=== PATIENT | female | born 1980 | race Caucasian/White ===

== ENCOUNTER 2019-10-04 21:55 | Emergency (ER) | payer MEDICAID, SELFPAY | END 2019-10-05 01:26 | disposition admitted as inpatient to this hospital (09) | LOC: ER 11-03 11:57 | PROVIDERS: Emergency Provider Emergency Medicine; Family Provider Family Medicine | DX: F31.9 Bipolar disorder, unspecified (principal); F10.20 Alcohol dependence, uncomplicated; F17.210 Nicotine dependence, cigarettes, uncomplicated; K70.10 Alcoholic hepatitis without ascites | CPT/HCPCS: 36415; 80053; 80306; 80307; 81025; 84443; 85025; 96372; 99284; 99285; J2405 ==

== ENCOUNTER 2019-10-04 21:55 | Inpatient (IN) | payer MEDICAID, SELFPAY ==
[2019-10-04 22:11] VITALS: BP 148/99; PULSE 105; RESP 18; TEMP 36.4; O2SAT 97; BMI 42.5
--- NOTE | 2019-10-04 22:36 | PC.NURSE ---
PATIENT STATES SHE NEEDS HELP WITH DETOX AND NEEDS TO STOP DRINKING ALCOHOL. PATIENT STATES THAT SHE WILL SLICE SOMEONES THROAT IF SHE IS NOT TAKEN TO THE STRESS UNIT. PATIENT STATES THAT SHE CANNOT DO IT ANYMORE AND NEEDS A COUPLE DAYS TO GET AWAY FROM IT . PATIENT STATES SHE IS BIPOLAR BUT NOT ON ANY MEDICATION AND HAS NOT STARTED ANY MEDICATION BECAUSE SHE CANNOT STOP DRINKING . PATIENT STATES SHE WANTS TO HURT HERSELF OR SOMEONE ELSE IF SHE CANNOT GET ANY HELP.
[2019-10-04 22:44] VITALS: RESP 16
--- NOTE | 2019-10-04 22:45 | ED_ITS ---
Entered by Ness Donaldson, acting as scribe for Reji Kate DO Oct 04, 2019 21:55 HPI - Psych General: Chief Complaint: Psychiatric Symptoms Stated Complaint: asking for detox Time Seen by Provider: 10/04/19 22:41 Source: patient and family Mode of arrival: ambulatory Limitations: no limitations History of Present Illness: HPI Narrative: 38 yo female presents with wanting detox from alcohol. pt states she has had depression. pt states she is a long standing alcoholic and needs help. pt states if she has inpt she will do it with medications. pt has had nausea and vomiting. pt denies any other symptoms at this time. MD complaint: other (detox for alcohol ) Onset (ago): day(s) (several days) Duration: constant and getting worse History of same: Yes Relieving factors: none Exacerbating factors: alcohol Context: recent alcohol abuse and significant life stressor Associated psychiatric symptoms: depression Associated symptoms: Reports depression; Deny auditory hallucinations or suicidal ideation Treatments prior to arrival: none Review of Systems Const: Denies: fever or chills Eyes: Denies: change in vision or blurry vision ENMT: Denies: painful swallowing, swelling of lips/tongue, bleeding gums, dental pain, Change in hearing, nose bleeds, post nasal drip or facial/sinus pain Card: Denies: chest pain, palpitations, irregular heart rhythm, edema, swelling of feet/ankles, shortness of breath on exertion or shortness of breath when lying down Resp: Denies: shortness of breath, productive cough, non-productive cough or wheezing GI: Reports: abdominal pain, nausea and vomiting; Denies: blood in stool or black tarry stool : Denies: painful urination, urinary frequency, urinary urgency or blood in urine Musc: Reports: back pain; Denies: neck pain, redness or joint warmth Skin/Breast: Denies: rash, itching or redness Neuro: Denies: headache, dizziness or vertigo Psych: Reports: depression; Denies: sleeping more, auditory hallucinations or suicidal ideation PFSH ED PFSH: Social History (Updated 09/25/19 @ 14:49 by EDWIGE Beach) Smoking and tobacco status: current every day smoker Alcohol intake: current Alcohol intake frequency: 3 or more drinks per day Alcohol type: hard liquor Lives independently: No Household members: friend(s) Housing: House Marital status: Number of children: 2 Pets and animals: Yes History of recent travel: No Physical Exam Const: COMMON NORMALS: alert GENERAL APPEARANCE: well developed ORIENTATION/CONSCIOUSNESS: Yes awake, Yes oriented to person, Yes oriented to place and Yes oriented to time HENMT: COMMON NORMALS: normocephalic, external ears normal, external nose normal and moist oral mucous membranes HEAD & SCALP: normocephalic; no scalp tenderness FACE & SINUS: normal facial exam NOSE: external nose normal and no nasal discharge EXTERNAL EAR: Yes external ears normal MOUTH: tongue normal THROAT: posterior oropharynx normal; no peritonsillar mass Eye: COMMON NORMALS: PERRL, EOMs intact bilaterally and conjunctivae normal EYELID: eyelids normal CONJUNCTIVA: Yes conjunctivae normal PUPIL: Yes PERRL Neck/C-Spine: COMMON NORMALS: full ROM GENERAL: Yes anterior neck swelling and No tracheal deviation Chest: COMMONS NORMALS: inspection of chest normal CHEST: Yes symmetrical chest wall rise and No tenderness Resp: COMMON NORMALS: clear to auscultation bilaterally EFFORT & INSPECTION: No tachypneic, No respiratory distress, No retractions, No uses accessory muscles and No tracheal deviation AUSCULTATION: clear to auscultation bilaterally, no rhonchi, no wheezes and lung sounds not diminished Cardio: COMMON NORMALS: regular rate and regular rhythm RATE: regular rate RHYTHM: regular rhythm HEART SOUNDS: no murmurs PERIPHERAL PULSES: radial pulses present GI: INSPECTION: No abdominal distension AUSCULTATION: No hyperactive bowel sounds and No hypoactive bowel sounds PALPATION: No tender, No guarding and No rigid PERCUSSION: no dullness to percussion and no tympanic to percussion : COMMON NORMALS: Yes no CVA tenderness BLADDER/KIDNEY EXAM: Yes no CVA tenderness Back/Pelvis: COMMON NORMALS: no CVA tenderness PELVIS: Yes no pain with anterior-posterior compression and Yes no pain with lateral compression Neuro: SENSORIUM/ORIENTATION: Yes alert, Yes oriented to person, Yes oriented to place and Yes oriented to time Skin: COMMON NORMALS: no rashes or lesions noted GENERAL SKIN EXAM: no rashes or lesions noted MDM - Psych MDM Narrative: Medical decision making narrative: This is a 38-year-old female who is a daily drinker. She reports that she has been increasingly angry, and wanting to slit someone's throat for the past couple of days. She is depressed, concerned about her drinking. She wants to come off of alcohol. She states I feel safe here, but if you will send me home, I am liable to slit someone's throat . She is medically stable. We discussed the case with Dr. Olsen, who agrees to admit. Lab Data: Labs: Lab Results 10/04/19 10/04/19 10/04/19 Range/Units 23:37 23:37 23:37 WBC (4.0-10.0) 10^3/ uL RBC (4.1-5.3) 10^6/u L Hgb (11.5-15.3) g/dL Hct (37.0-47.0) % MCV (81-99) fL MCH (28.0-34.0) pg MCHC (30.0-36.0) g/dL RDW (12.1-15.1) % Plt Count (130-400) 10^3/c mm MPV (7.4-10.4) fL Neut % (Auto) % Lymph % (Auto) % Florence % (Auto) % Eos % (Auto) % Baso % (Auto) % Neut # (Auto) (1.8-7.7) 10^3/u L Lymph # (Auto) (0.8-4.8) 10^3/u L Florence # (Auto) (0.2-0.9) 10^3/u L Eos # (Auto) (0.0-0.8) 10^3/u L Baso # (Auto) (0.0-0.1) 10^3/u L Nucleated RBC % (a uto) % Nucleated RBCs # /100WBC Sodium (136-145) mmol/L Potassium (3.5-5.1) mmol/L Chloride (98-107) mmol/L Carbon Dioxide (22-29) mmol/L Anion Gap (5-19) BUN (6-20) mg/dL Creatinine (0.5-0.9) mg/dL GFR Calculation (90-130) mL/min Glucose (65-115) mg/dL Calcium (8.5-10.5) mg/dL Total Bilirubin (0.15-1.2) mg/dL AST (0-32) U/L ALT (0-33) U/L Alkaline Phosphata se (35-105) IU/L Total Protein (6.6-8.7) g/dL Albumin (3.5-5.2) g/dL Globulin (1.3-4.6) g/dL Vitamin B12 (232-1245) pg/mL Folate (4.8-37.3) ng/mL TSH (0.27-4.20) uIU/ mL HCG, Qual Negative (Negative) Urine Color Yellow (Yellow) Urine Appearance Clear (CLEAR) Urine pH 5 (5-7) Ur Specific Gravit y 1.015 (1.005-1.030) Urine Protein Neg (Negative) Urine Glucose (UA) Norm (Normal) Urine Ketones Negative (Negative) Urine Blood Neg (Negative) Urine Nitrate Negative (Negative) Urine Bilirubin Neg (NEGATIVE) Urine Urobilinogen Norm (Negative) mg/dL Ur Leukocyte Key[place] ase Negative (Negative) Salicylates (3-10) mg/dL Urine Opiates Scre en Negative (Negative) ng/mL Acetaminophen (10-30) ug/mL Ur Barbiturates Sc reen Negative (Negative) ng/mL Ur Phencyclidine S crn Negative (Negative) ng/mL Ur Amphetamines Sc reen Negative (Negative) ng/mL U Benzodiazepines Scrn Negative (Negative) ng/mL Urine Cocaine Scre en Negative (Negative) ng/mL U Marijuana (THC) Screen Positive H (Negative) ng/mL Ethyl Alcohol (0-10) mg/dL 10/04/19 10/04/19 10/04/19 Range/Units 23:42 23:42 23:42 WBC 10.4 H (4.0-10.0) 10^3/ uL RBC 4.39 (4.1-5.3) 10^6/u L Hgb 14.8 (11.5-15.3) g/dL Hct 43.8 (37.0-47.0) % MCV 99.8 H (81-99) fL MCH 33.7 (28.0-34.0) pg MCHC 33.8 (30.0-36.0) g/dL RDW 13.5 (12.1-15.1) % Plt Count 233 (130-400) 10^3/c mm MPV 10.3 (7.4-10.4) fL Neut % (Auto) 65.6 % Lymph % (Auto) 23.9 % Florence % (Auto) 7.2 % Eos % (Auto) 2.0 % Baso % (Auto) 0.8 % Neut # (Auto) 6.9 (1.8-7.7) 10^3/u L Lymph # (Auto) 2.5 (0.8-4.8) 10^3/u L Florence # (Auto) 0.8 (0.2-0.9) 10^3/u L Eos # (Auto) 0.2 (0.0-0.8) 10^3/u L Baso # (Auto) 0.1 (0.0-0.1) 10^3/u L Nucleated RBC % (a uto) 0 % Nucleated RBCs # 0.0 /100WBC Sodium 138 (136-145) mmol/L Potassium 4.2 (3.5-5.1) mmol/L Chloride 101 (98-107) mmol/L Carbon Dioxide 21 L (22-29) mmol/L Anion Gap 20.2 H (5-19) BUN 12 (6-20) mg/dL Creatinine 0.6 (0.5-0.9) mg/dL GFR Calculation 113.1 (90-130) mL/min Glucose 105 (65-115) mg/dL Calcium 9.2 (8.5-10.5) mg/dL Total Bilirubin 0.3 (0.15-1.2) mg/dL AST 208 H (0-32) U/L ALT 187 H (0-33) U/L Alkaline Phosphata se 106 H (35-105) IU/L Total Protein 7.7 (6.6-8.7) g/dL Albumin 4.7 (3.5-5.2) g/dL Globulin 3.0 (1.3-4.6) g/dL Vitamin B12 (232-1245) pg/mL Folate 4.4 L (4.8-37.3) ng/mL TSH 1.30 (0.27-4.20) uIU/ mL HCG, Qual (Negative) Urine Color (Yellow) Urine Appearance (CLEAR) Urine pH (5-7) Ur Specific Gravit y (1.005-1.030) Urine Protein (Negative) Urine Glucose (UA) (Normal) Urine Ketones (Negative) Urine Blood (Negative) Urine Nitrate (Negative) Urine Bilirubin (NEGATIVE) Urine Urobilinogen (Negative) mg/dL Ur Leukocyte Keya ase (Negative) Salicylates < 0.3 L (3-10) mg/dL Urine Opiates Scre en (Negative) ng/mL Acetaminophen < 5.0 L (10-30) ug/mL Ur Barbiturates Sc reen (Negative) ng/mL Ur Phencyclidine S crn (Negative) ng/mL Ur Amphetamines Sc reen (Negative) ng/mL U Benzodiazepines Scrn (Negative) ng/mL Urine Cocaine Scre en (Negative) ng/mL U Marijuana (THC) Screen (Negative) ng/mL Ethyl Alcohol 127 H (0-10) mg/dL 10/04/19 Range/Units 23:42 WBC (4.0-10.0) 10^3/ uL RBC (4.1-5.3) 10^6/u L Hgb (11.5-15.3) g/dL Hct (37.0-47.0) % MCV (81-99) fL MCH (28.0-34.0) pg MCHC (30.0-36.0) g/dL RDW (12.1-15.1) % Plt Count (130-400) 10^3/c mm MPV (7.4-10.4) fL Neut % (Auto) % Lymph % (Auto) % Florence % (Auto) % Eos % (Auto) % Baso % (Auto) % Neut # (Auto) (1.8-7.7) 10^3/u L Lymph # (Auto) (0.8-4.8) 10^3/u L Florence # (Auto) (0.2-0.9) 10^3/u L Eos # (Auto) (0.0-0.8) 10^3/u L Baso # (Auto) (0.0-0.1) 10^3/u L Nucleated RBC % (a uto) % Nucleated RBCs # /100WBC Sodium (136-145) mmol/L Potassium (3.5-5.1) mmol/L Chloride (98-107) mmol/L Carbon Dioxide (22-29) mmol/L Anion Gap (5-19) BUN (6-20) mg/dL Creatinine (0.5-0.9) mg/dL GFR Calculation (90-130) mL/min Glucose (65-115) mg/dL Calcium (8.5-10.5) mg/dL Total Bilirubin (0.15-1.2) mg/dL AST (0-32) U/L ALT (0-33) U/L Alkaline Phosphata se (35-105) IU/L Total Protein (6.6-8.7) g/dL Albumin (3.5-5.2) g/dL Globulin (1.3-4.6) g/dL Vitamin B12 961 (232-1245) pg/mL Folate (4.8-37.3) ng/mL TSH (0.27-4.20) uIU/ mL HCG, Qual (Negative) Urine Color (Yellow) Urine Appearance (CLEAR) Urine pH (5-7) Ur Specific Gravit y (1.005-1.030) Urine Protein (Negative) Urine Glucose (UA) (Normal) Urine Ketones (Negative) Urine Blood (Negative) Urine Nitrate (Negative) Urine Bilirubin (NEGATIVE) Urine Urobilinogen (Negative) mg/dL Ur Leukocyte Keya ase (Negative) Salicylates (3-10) mg/dL Urine Opiates Scre en (Negative) ng/mL Acetaminophen (10-30) ug/mL Ur Barbiturates Sc reen (Negative) ng/mL Ur Phencyclidine S crn (Negative) ng/mL Ur Amphetamines Sc reen (Negative) ng/mL U Benzodiazepines Scrn (Negative) ng/mL Urine Cocaine Scre en (Negative) ng/mL U Marijuana (THC) Screen (Negative) ng/mL Ethyl Alcohol (0-10) mg/dL Discharge Plan Discharge Admit Provider: Kenrick Olsen Discharge Date/Time: 10/05/19 01:26 Coding Level of Care Code ED Consultant Nurse for Chg Fwd Exam Comprehensive The documentation recorded by the Mendoza corbett Bridget Annette, accurately reflects the service I personally performed and the decisions made by [place] Jeremy John, DO Oct 04, 2019 21:55
--- NOTE | 2019-10-04 22:54 | PC.NURSE ---
PATIENT TAKEN WATER BY NURSE
[2019-10-04 23:45] LABS: Basophils # 0.1 10^3/uL (0.0-0.1); Basophils % 0.8 %; Eosinophils # 0.2 10^3/uL (0.0-0.8); Hematocrit 43.8 % (37.0-47.0); Hemoglobin 14.8 g/dL (11.5-15.3); Lymphocytes # 2.5 10^3/uL (0.8-4.8); Lymphocytes % 23.9 %; Mean Corpuscular HGB Conc 33.8 g/dL (30.0-36.0); Mean Corpuscular Hemoglobin 33.7 pg (28.0-34.0); Mean Corpuscular Volume 99.8 fL (81-99); Mean Platelet Volume 10.3 fL (7.4-10.4); Monocytes # 0.8 10^3/uL (0.2-0.9); Monocytes % 7.2 %; Neutrophils # 6.9 10^3/uL (1.8-7.7); Neutrophils % 65.6 %; Nucleated Red Blood Cells % 0 %; Platelet Count 233 10^3/cmm (130-400); Red Blood Count 4.39 10^6/uL (4.1-5.3); Red Cell Distribution Width 13.5 % (12.1-15.1); White Blood Count 10.4 10^3/uL (4.0-10.0)
[2019-10-04 23:57] LABS: Add Urine Microscopic? NO
[2019-10-05 00:13] LABS: Amphetamines Screen Urine Negative (Negative); Barbiturates Screen Urine Negative (Negative); Benzodiazepines Screen Urine Negative (Negative); Cocaine Screen Urine Negative (Negative); Opiate Screen Urine Negative (Negative); PCP Screen Urine Negative (Negative); THC Screen Urine Positive (Negative)
[2019-10-05 00:14] LABS: Bilirubin Urine Neg (NEGATIVE); Blood Urine Neg (Negative); Glucose Urine UA Norm (Normal); HCG Qualitative Urine. Negative (Negative); Ketones Urine Negative (Negative); Leukocyte Esterase Urine Negative (Negative); Nitrate Urine Negative (Negative); Protein Urine Neg (Negative); Specific Gravity, Urine 1.015 (1.005-1.030); Urine Appearance Clear (CLEAR); Urine Color Yellow (Yellow); Urobilinogen Urine Norm (Negative); pH Urine 5 (5-7)
--- NOTE | 2019-10-05 00:16 | PC.NURSE ---
PATIENT STATES SHE DOES NOT WANT TO HURT ANYONE OR HERSELF AT THIS MOMENT. PATIENT STATES SHE HAS CALMED DOWN SINCE BEING IN THE HOSPITAL BUT IF SHE IS NOT IN THE HOSPITAL SHE WILL GET MAD
[2019-10-05 00:18] LABS: Alanine Aminotransferase 187 U/L (0-33); Albumin Level 4.7 g/dL (3.5-5.2); Alcohol Level 127 mg/dL (0-10); Alkaline Phosphatase 106 IU/L (35-105); Anion Gap 20.2 (5-19); Aspartate Amino Transferase 208 U/L (0-32); Blood Urea Nitrogen 12 mg/dL (6-20); Calcium 9.2 mg/dL (8.5-10.5); Carbon Dioxide 21 mmol/L (22-29); Chloride 101 mmol/L (98-107); Glomerular Filtration Rate 113.1 mL/min (90-130); Glucose 105 mg/dL (65-115); Potassium 4.2 mmol/L (3.5-5.1); Sodium 138 mmol/L (136-145); Total Bilirubin 0.3 mg/dL (0.15-1.2); Total Protein 7.7 g/dL (6.6-8.7)
[2019-10-05 00:23] LABS: Acetaminophen < 5.0 ug/mL (10-30); Salicylate < 0.3 mg/dL (3-10)
[2019-10-05] MEDS: ondansetron 2 mg/ML SDV 2 mL 4 MG IM (00:50)
[2019-10-05 01:21] VITALS: BP 125/92; PULSE 98; RESP 16; O2SAT 97
[2019-10-05 01:31] VITALS: BP 130/84; PULSE 101; RESP 18; TEMP 36.8; O2SAT 96
--- NOTE | 2019-10-05 02:18 | PC.NURSE ---
ibuprofen 800mg po given for migraine headache.
[2019-10-05 02:31] LABS: Folate Level 4.4 ng/mL (4.8-37.3)
[2019-10-05 02:32] LABS: Vitamin B12 961 pg/mL (232-1245)
[2019-10-05 06:00] VITALS: BP 117/77; PULSE 78; RESP 17; TEMP 37; O2SAT 94
[2019-10-05 13:50] VITALS: BP 121/74; PULSE 80; RESP 19
--- NOTE | 2019-10-05 14:30 | P.HP_ITS ---
Providers/Chief Complaint Admitting Physician: Kenrick Olsen MD Chief Complaint: asking for detox HPI [facility] History of Present Illness Teodora Stiles is a 38 year old female who presents reporting that sheo has a long history of bipolar disorder and alcohol use disorder but that she has been unable to start the Abilify which had been started for her in [place] recently secondary to fears that she would not get the benefit from the Abilify secondary to her serious drinking problem. She reports that she was doing well for a moment spacing out her drinking to maybe a pint every 3 days and she thought she would be able to start the medication to help with her reported bipolar symptoms which she did not clearly describe. However she reports that her drinking increased instead to where she was drinking 2 to 3 pints a day. She reports that she now has been 1 day without drinking. We discussed the risks benefits and alternatives of starting the Abilify and she understood and agreed to proceed as is documented in this note. Psychiatric history: This is her second hospitalization in the [facility]. She denies significant medication trials. Substance abuse history: She does confirm the previous history obtained endorsing significant alcohol use as above. She has a history of methamphetamine use which she currently denies. Family history: She does endorse significant addiction history in her family. Developmental history: She denies contributory information reporting a normal and delivery by her mom, normal development and meeting of developmental milestones and denial of any academic issues during her formative years. Psychosocial history: She reports that she has 2 children. That she is currently unemployed. He reports that she has family but that she is no longer in contact with them. History of Present Illness Date of Service: December 18, 2017 Chief Complaint: Suicidal attempt by laceration of wrists HPI: Ms. Stiles is a 35-year-old female who is new to our behavioral health system who was admitted under 96 hour hold after she was brought in by EMS that she attempted to kill herself by cutting both wrists bilaterally. Apparently she used to pressure knife and created to deep lacerations on requiring internal and external sutures yesterday requiring marisol. Patient reports that she's been struggling with depression in recent days in the context of being estranged from her family, learning that her mother is terminally ill, and feeling completely alone . She reports that she is been drinking steadily for the past 6 months and that she would drink at least 4-5 pints a day. BAL on admission was 5, she states that her last drink was today prior to admission. She does report a history of withdrawal symptoms consisting of sweats, tremors, but denies any withdrawal seizures. 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 She does admit to depression symptoms denies any symptoms consistent with mayela, hypomania, psychosis. Allergies: Coded Allergies: CODEINE (Verified Adverse Reaction, Unknown, 12/18/17) PREDNISONE (Verified Adverse Reaction, Unknown, 12/18/17) Past Medical History Past Medical History: PAST PSYCHIATRIC HISTORY: -This is her first hospitalization on the [facility] PAST FAMILY PSYCHIATRIC HISTORY: -Substance use SOCIAL HISTORY: -Recently moved to [place] from [place] -Has 2 children ages 16 years and 13 years that live in [place] PAST MEDICAL HISTORY: -COPD Meds [facility] Home Medications Medication Instructions Recorded Confirmed Type No Known Home Medications 10/05/19 10/05/19 History Allergies Allergy/AdvReac Type Severity Reaction Status Date / Time hydroxyzine [From Vistaril] Allergy Intermediate swelling Verified 09/25/19 14:46 of the mouth codeine Allergy ALGY-Difficulty Verified 09/25/19 14:46 Breathing prednisone Allergy ALGY-Swell Verified 09/25/19 14:46 Lip/Tongue/Throat PFSH [facility] PFSH: Social History (Updated 09/25/19 @ 14:49 by EDWIGE Beach) Smoking and tobacco status: current every day smoker Alcohol intake: current Alcohol intake frequency: 3 or more drinks per day Alcohol type: hard liquor Lives independently: No Household members: friend(s) Housing: House Marital status: Number of children: 2 Pets and animals: Yes History of recent travel: No Mental Status Exam MSE Comments: This is an obese versus morbidly obese white female with adequate dress, grooming and eye contact. No abnormal movements except for mild psychomotor agitation. Cooperative with exam in no acute distress. Speech was slightly increased rate and volume mood described as okay affect congruent. Tho ught process organized. Thought content: Patient denied any homicidal ideation but endorsed some fleeting suicidal ideation with no delusions reported or noted, she denied any auditory or visual hallucinations. Attention and concentration were intact and memory was mostly reliable but none were formally tested. She is alert and oriented x3. Insight and judgment are improving. Vitals/I&O/Wt Last Vital Signs Temp 98.6 F 10/05/19 06:00 Pulse 80 10/05/19 13:50 Resp 19 H 10/05/19 13:50 BP 121/74 10/05/19 13:50 Pulse Ox 94 10/05/19 06:00 Weight last 48 hrs Weight 109.316 kg Weight 108.862 kg Home Medications No Known Home Medications 10/05/19 [History Confirmed 10/05/19] Active Medications Acetaminophen (Tylenol) 650 mg PO Q4H PRN PRN Reason: MILD PAIN Aripiprazole (Abilify) 10 mg PO DAILY [facility] Last Admin: 10/05/19 21:59 Dose: 10 mg Documented by: Benztropine Mesylate (Cogentin) 1 mg PO BID PRN PRN Reason: Mild Extrapyramidal symptoms Camphor/Menthol/Phenol (Blistex) 1 applic TOPICAL Q1H PRN PRN Reason: DRYNESS Diphenhydramine HCl (Benadryl) 50 mg IM ONCE PRN PRN Reason: Severe Extrapyramidal Symptoms Diphenhydramine HCl (Benadryl) 50 mg IM Q4H PRN PRN Reason: Severe Aggression Doxepin HCl (Sinequan) 10 mg PO BEDTIME [facility] Last Admin: 10/05/19 21:59 Dose: 10 mg Documented by: Haloperidol (Haldol) 5 mg PO Q4H PRN PRN Reason: AGITATION Haloperidol Lactate (Haldol Inj) 5 mg IM Q4H PRN PRN Reason: Severe Aggression Ibuprofen (Motrin) 800 mg PO Q8H PRN PRN Reason: MODERATE PAIN Last Admin: 10/05/19 02:13 Dose: 800 mg Documented by: Loperamide HCl (Imodium Capsule) 2 mg PO Q6H PRN PRN Reason: DIARRHEA Lorazepam (Ativan) 2 mg IM Q4H PRN PRN Reason: Severe Aggression Nicotine (Nicoderm 21 Mg Patch) 1 patch TRANSDERMA DAILY PRN PRN Reason: NICOTINE WITHDRAWAL Last Admin: 10/05/19 15:22 Dose: 1 patch Documented by: Nicotine Polacrilex (Nicorette) 2 mg BUCCAL Q2H PRN PRN Reason: NICOTINE WITHDRAWAL Olanzapine (Zyprexa Zydis) 5 mg PO Q4H PRN PRN Reason: Agitation/Psychosis Ondansetron HCl (Zofran) 4 mg PO Q6H PRN PRN Reason: NAUSEA AND VOMITING Last Admin: 10/05/19 18:55 Dose: 4 mg Documented by: Trazodone HCl (Desyrel) 50 mg PO BEDTIME PRN PRN Reason: SLEEP Data [facility]PU : 10/04/19 23:42 10/04/19 23:42 A&P Assessment and plan (1) Alcohol use disorder, severe, dependence: This is a 38-year-old white female with a reported history of bipolar disorder and addiction with significant alcohol use reported who presents in her first day of withdrawal off of medication desiring to start a medication she had not been able to start secondary to her heavy drinking. 1. Continue current medication. Except again Abilify 10 mg p.o. every morning and doxepin 10 mg p.o. nightly 2. Work to get collateral information from outpatient sources. 3. Encourage individual group and milieu therapy. 4. Continue every 15 minute checks for safety. 5. Plan for discharge to highest level of sober living treatment to which she is willing to commit. Status: Acute Code(s): F10.20 - Alcohol dependence, uncomplicated (2) Bipolar 1 disorder: Status: Acute Code(s): F31.9 - Bipolar disorder, unspecified Involuntary Hold Information 96 Hour Hold: 96 Hour Involuntary Admission: No Attestations [facility] Medical Necessity Statement*: Inpatient hospitalization is medically necessary and the clinically appropriate intervention at this time. She will be in the hospital for over 2 midnights. We will monitor medications and make changes as indicated. Likely length of stay 3 to 5 days. Coding Level of Care Code Acute [employer] Supervisor for Zeus Fwstacey Diagnoses Alcohol use disorder, severe, dependence F10.20 Bipolar 1 disorder F31.9
[2019-10-05] MEDS: ondansetron 4 MG Tablet PO ×2 (15:06→18:55)
[2019-10-05] MEDS: nicotine 21 mg Patch 1 PATCH TRANSDERMA (15:22)
--- NOTE | 2019-10-05 18:53 | PC.NURSE ---
PT NOT: PRN ZOFRAN 4MG GIVEN FOR NAUSEA X2 THIS SHIFT.
[2019-10-05 21:22] VITALS: BP 112/72; PULSE 87; RESP 20; TEMP 36.7; O2SAT 97
[2019-10-05] MEDS: doxepin 10 mg Capsule PO (21:59)
[2019-10-05] MEDS: ARIPiprazole 10 mg Tablet PO (21:59)
[2019-10-06 06:00] VITALS: BP 106/65; PULSE 75; RESP 16; TEMP 36.8; O2SAT 96
[2019-10-06] MEDS: ARIPiprazole 10 mg Tablet PO (08:59)
[2019-10-06] MEDS: ondansetron 4 MG Tablet PO ×3 (09:15→21:17)
--- NOTE | 2019-10-06 09:18 | PC.NURSE ---
PT NOTE: PRN ZOFRAN GIVEN FOR NAUSEA, PRN IBUPROFEN GIVEN FOR HEADACHE AT A 6 ON THE 1-10 PAIN SCALE.
--- NOTE | 2019-10-06 12:54 | PM.NPN ---
Subjective NPU Subjective: Interval history: Teodora presents today reporting that she is feeling better. She was already speaking about discharge. We discussed the fact that would like to see her on the medication another day. She reports that she accomplished her goal of not using for a couple days and that she has things to do, a job in place and feeling she has all of the necessary tools and circumstances to have success outside of the hospital. We discussed aftercare and [facility] She reports that she is eating and sleeping well. Mental Status Exam MSE Comments: This is an obese versus morbidly obese white female with adequate dress, grooming and eye contact. No abnormal movements. Cooperative with exam in no acute distress. Speech was normal rate and volume. mood described as better affect congruent. Thought process organized. Thought content: Patient denied any homicidal ideation or suicidal ideation with no delusions reported or noted, she denied any auditory or visual hallucinations. Attention and concentration were intact and memory was mostly reliable but none were formally tested. She is alert and oriented x3. Insight and judgment are improving. Vitals/I&O/Wt Last Vital Signs Temp 98.2 F 10/06/19 21:48 Pulse 96 10/06/19 21:48 Resp 17 10/06/19 21:48 BP 136/88 10/06/19 21:48 Pulse Ox 96 10/06/19 21:48 Weight last 48 hrs Weight 109.316 kg Home Medications No Known Home Medications 10/05/19 [History Confirmed 10/05/19] Active Medications Acetaminophen (Tylenol) 650 mg PO Q4H PRN PRN Reason: MILD PAIN Aripiprazole (Abilify) 10 mg PO DAILY [facility] Last Admin: 10/06/19 08:59 Dose: 10 mg Documented by: Benztropine Mesylate (Cogentin) 1 mg PO BID PRN PRN Reason: Mild Extrapyramidal symptoms Camphor/Menthol/Phenol (Blistex) 1 applic TOPICAL Q1H PRN PRN Reason: DRYNESS Diphenhydramine HCl (Benadryl) 50 mg IM ONCE PRN PRN Reason: Severe Extrapyramidal Symptoms Diphenhydramine HCl (Benadryl) 50 mg IM Q4H PRN PRN Reason: Severe Aggression Doxepin HCl (Sinequan) 10 mg PO BEDTIME [facility] Last Admin: 10/06/19 21:15 Dose: 10 mg Documented by: Haloperidol (Haldol) 5 mg PO Q4H PRN PRN Reason: AGITATION Haloperidol Lactate (Haldol Inj) 5 mg IM Q4H PRN PRN Reason: Severe Aggression Ibuprofen (Motrin) 800 mg PO Q8H PRN PRN Reason: MODERATE PAIN Last Admin: 10/06/19 09:16 Dose: 800 mg Documented by: Loperamide HCl (Imodium Capsule) 2 mg PO Q6H PRN PRN Reason: DIARRHEA Lorazepam (Ativan) 2 mg IM Q4H PRN PRN Reason: Severe Aggression Nicotine (Nicoderm 21 Mg Patch) 1 patch TRANSDERMA DAILY PRN PRN Reason: NICOTINE WITHDRAWAL Last Admin: 10/06/19 16:49 Dose: 1 patch Documented by: Nicotine Polacrilex (Nicorette) 2 mg BUCCAL Q2H PRN PRN Reason: NICOTINE WITHDRAWAL Olanzapine (Zyprexa Zydis) 5 mg PO Q4H PRN PRN Reason: Agitation/Psychosis Ondansetron HCl (Zofran) 4 mg PO Q6H PRN PRN Reason: NAUSEA AND VOMITING Last Admin: 10/06/19 21:17 Dose: 4 mg Documented by: Trazodone HCl (Desyrel) 50 mg PO BEDTIME PRN PRN Reason: SLEEP Last Admin: 10/06/19 22:04 Dose: 50 mg Documented by: Data NPU : 10/04/19 23:42 10/04/19 23:42 A&P Additional A&P Information This is a 38-year-old white female with a reported history of bipolar disorder and addiction with significant alcohol use reported who presents in her first day of withdrawal off of medication desiring to start a medication she had not been able to start secondary to her heavy drinking. 1. Continue current medication. 2. Work to get collateral information from outpatient sources. 3. Encourage individual group and milieu therapy. 4. Continue every 15 minute checks for safety. 5. Plan for discharge to highest level of sober living treatment to which she is willing to commit. Involuntary Hold Information 96 Hour Hold: 96 Hour Involuntary Admission: No Attestations NPU Medical Necessity Statement*: Inpatient hospitalization is medically necessary and the clinically appropriate intervention at this time. We will monitor medications and make changes as indicated. Likely length of stay 1-3 days.Likely discharge tomorrow per patient request. Coding Level of Care Code Acute Commercial Pest Control Technician for Con Sanchez
[2019-10-06 14:00] VITALS: BP 118/74; PULSE 82; RESP 18; TEMP 37; O2SAT 98
[2019-10-06] MEDS: nicotine 21 mg Patch 1 PATCH TRANSDERMA (16:49)
[2019-10-06] MEDS: doxepin 10 mg Capsule PO (21:15)
[2019-10-06 21:48] VITALS: BP 136/88; PULSE 96; RESP 17; TEMP 36.8; O2SAT 96
[2019-10-06] MEDS: trazodone 50 mg Tablet PO (22:04)
[2019-10-07 06:00] VITALS: BP 111/76; PULSE 81; RESP 18; TEMP 36.7; O2SAT 96
[2019-10-07] MEDS: ARIPiprazole 10 mg Tablet PO (09:25)
--- NOTE | 2019-10-07 12:26 | PM.NDC ---
Diagnoses at Discharge Discharge Diagnosis (1) Alcohol use disorder, severe, dependence: Status: Acute (2) Bipolar 1 disorder: Status: Acute Reason for Visit Reason for Visit: Reason For Visit: asking for detox Brief History: HPI NPU History of Present Illness Teodora Stiles is a 38 year old female who presents reporting that sheo has a long history of bipolar disorder and alcohol use disorder but that she has been unable to start the Abilify which had been started for her in [place] recently secondary to fears that she would not get the benefit from the Abilify secondary to her serious drinking problem. She reports that she was doing well for a moment spacing out her drinking to maybe a pint every 3 days and she thought she would be able to start the medication to help with her reported bipolar symptoms which she did not clearly describe. However she reports that her drinking increased instead to where she was drinking 2 to 3 pints a day. She reports that she now has been 1 day without drinking. We discussed the risks benefits and alternatives of starting the Abilify and she understood and agreed to proceed as is documented in this note. Psychiatric history: This is her second hospitalization in the NPU. She denies significant medication trials. Substance abuse history: She does confirm the previous history obtained endorsing significant alcohol use as above. She has a history of methamphetamine use which she currently denies. Family history: She does endorse significant addiction history in her family. Developmental history: She denies contributory information reporting a normal and delivery by her mom, normal development and meeting of developmental milestones and denial of any academic issues during her formative years. Psychosocial history: She reports that she has 2 children. That she is currently unemployed. He reports that she has family but that she is no longer in contact with them. Per her last [facility] eval: History of Present Illness Date of Service: December 18, 2017 Chief Complaint: Suicidal attempt by laceration of wrists HPI: Ms. Stiles is a 35-year-old female who is new to our behavioral health system who was admitted under 96 hour hold after she was brought in by EMS that she attempted to kill herself by cutting both wrists bilaterally. Apparently she used to pressure knife and created to deep lacerations on requiring internal and external sutures yesterday requiring marisol. Patient reports that she's been struggling with depression in recent days in the context of being estranged from her family, learning that her mother is terminally ill, and feeling completely alone . She reports that she is been drinking steadily for the past 6 months and that she would drink at least 4-5 pints a day. BAL on admission was 5, she states that her last drink was today prior to admission. She does report a history of withdrawal symptoms consisting of sweats, tremors, but denies any withdrawal seizures. 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 She does admit to depression symptoms denies any symptoms consistent with mayela, hypomania, psychosis. Allergies: Coded Allergies: CODEINE (Verified Adverse Reaction, Unknown, 12/18/17) PREDNISONE (Verified Adverse Reaction, Unknown, 12/18/17) Past Medical History Past Medical History: PAST PSYCHIATRIC HISTORY: -This is her first hospitalization on the NPU PAST FAMILY PSYCHIATRIC HISTORY: -Substance use SOCIAL HISTORY: -Recently moved to [place] from [place] -Has 2 children ages 16 years and 13 years that live in [place] PAST MEDICAL HISTORY: -COPD Hospital Course Hospital Course Teodora presented to the emergency room reporting active alcohol withdrawal with significant alcohol use disorder as well as Foster herself/killer cells and a history of bipolar disorder off of medication. She was admitted to the neuro psych unit and was monitored for withdrawal. Additionally she was started on the Abilify which had been prescribed from an outside provider never initiated before. Additionally she was given doxepin for sleep. She responded to those medications well. Her withdrawal resolved as well. During hospitalization she had routine laboratory studies which were within normal limits except for a few outliers. Additionally she had a general medical evaluation which is within normal limits and revealed no new acute processes outside of the alcohol withdrawal. Discharge Summary At the time of discharge her withdrawal had resolved, she was asked to lethality, her mood had improved and she endorsed a plan to abstain from alcohol and follow-up with the referrals for ongoing treatment. She was evaluated and deemed to be absent credible lethality and she had obtained maximum benefit from inpatient hospitalization so she was discharged. Involuntary Hold Information 96 Hour Hold: 96 Hour Involuntary Admission: No Mental Status Exam MSE Comments: This is an obese versus morbidly obese white female with adequate dress, grooming and eye contact. No abnormal movements. Cooperative with exam in no acute distress. Speech was normal rate and volume. mood described as pretty good, affect congruent. Thought process organized. Thought content: Patient denied any homicidal ideation or suicidal ideation with no delusions reported or noted, she denied any auditory or visual hallucinations. Attention and concentration were intact and memory was reliable but none were formally tested. She is alert and oriented x3. Insight and judgment are fair and improving. Discharge Data Vitals: Last Vital Signs Temp 98.1 F 10/07/19 06:00 Pulse 81 10/07/19 06:00 Resp 18 10/07/19 06:00 BP 111/76 10/07/19 06:00 Pulse Ox 96 10/07/19 06:00 Discharge Plan Discharge Patient Disposition: Home, Self-Care Condition: Stable Prescriptions: New doxepin 10 mg Capsule 10 mg PO BEDTIME 30 Days Qty: 30 RF: 1 aripiprazole 10 mg Tablet 10 mg PO DAILY 30 Days Qty: 30 RF: 1 Continued No Known Home Medications RF: 0 Discharge Orders: Discharge Order (Routine); Ordered 10/07/19 Ordered By: Kenrick Olsen Discharge Diet: Regular Discharge Activity: Resume usual activity Patient Instructions: Doxepin (By mouth), Aripiprazole (By mouth) Activity Restrictions/Additional Instructions: You requested services in the [place] area to help continue your recovery. An appointment has been made at the [facility] with the Labor Relations Manager there to assist you with referrals for outpatient care. They do have telepsych available and also individual therapy. Do ask the director of social work for more resources like AA meetings in the area to help with your recovery. [address], [place] [phone] October 20 @ 9:45 a.m. with Clau Tavarez Labor Relations Manager. Other possible resources: [facility] for [facility] abuse treatment [facility] [place] [place] [address] [facility] [place] ([facility]) [address] [place] [address]. [facility] [address] [place] [address] Hours: 7:30 a.m.-2:30 p.m.(walk-in hours) go any time Sunday through Sunday and request initial intake Discharge Date/Time: 10/07/19 13:20 Discharge Attestations NPU Time Spent in Discharge Care*: less than 30 min Specific Discharge Activities: Specific discharge activities: educating patient, discussing with bilingual patient support caseworker/social workers/dc planners, documenting/other paperwork and evaluating patient/reviewing data Coding Level of Care Code Acute Nut Cracker for [facility] Fwd Diagnoses Alcohol use disorder, severe, dependence F10.20 Bipolar 1 disorder F31.9
[2019-10-07 13:00] VITALS: BP 111/76; PULSE 81; RESP 18; TEMP 36.7; O2SAT 96
== END 2019-10-07 13:20 | disposition home or self-care (01) | DRG 897 ==
LOC: ER 22:41 → NP 10-05 01:11
PROVIDERS: Admitting Provider Psychiatry & Neurology Psychiatry; Emergency Provider Emergency Medicine; Family Provider Family Medicine; Visit Provider Psychiatry & Neurology Psychiatry
DX: F10.229 Alcohol dependence with intoxication, unspecified (principal); Z68.41 Body mass index [BMI] 40.0-44.9, adult; F10.239 Alcohol dependence with withdrawal, unspecified; F31.9 Bipolar disorder, unspecified; Z91.5 Personal history of self-harm; E66.01 Morbid (severe) obesity due to excess calories; F17.210 Nicotine dependence, cigarettes, uncomplicated; Y90.6 Blood alcohol level of 120-199 mg/100 ml
CPT/HCPCS: 12345; 36415; 80053; 80306; 80307; 81003; 81025; 82607; 82746; 84443; 85025; 96372; 99284; J2405; Q0162

== ENCOUNTER 2020-01-06 06:00 | Outpatient (RCR) | payer SELFPAY | END 2020-02-03 23:59 | disposition home or self-care (01) | LOC: GPT 06:00 | PROVIDERS: Referring Provider Nurse Practitioner; Visit Provider Nurse Practitioner | DX: M54.5 Low back pain (principal) | CPT/HCPCS: 97032; 97110; 97140; 97161; 97530 ==

== ENCOUNTER 2020-01-07 13:45 | Outpatient (CLI) | payer MEDICAID, SELFPAY ==
--- NOTE | 2020-01-07 14:13 | XR_ITS ---
WS: [id number] LUMBAR SPINE: 5 VIEWS TECHNIQUE: AP, lateral, and L5-S1 spot. Lateral views in neutral, flexion and extension. HISTORY: CHRONIC LOW BACK PAIN COMPARISON: None available. Mild LEFT convex curvature of the lumbar spine. On upright neutral imaging L5 anterolisthesis by 10.7 mm. With flexion and extension there is no significant change. There is a large defect involving the pars. Mild disc space narrowing at L5-S1. SI joints are symmetric bilaterally. No soft tissue abnormalities. XR/XR lumbar spine min 4V [id number] IMPRESSION: 1. Spondylolisthesis and spondylolysis of L5. Anterolisthesis of L5 by 10.7 mm with no instability. 2. Mild disc space narrowing at L5-S1.
== END 2020-01-07 13:46 | disposition home or self-care (01) ==
PROVIDERS: PCP Nurse Practitioner; Visit Provider Nurse Practitioner
DX: M54.17 Radiculopathy, lumbosacral region (principal); M54.5 Low back pain; M43.16 Spondylolisthesis, lumbar region; M47.816 Spondylosis without myelopathy or radiculopathy, lumbar region
CPT/HCPCS: 72114

== ENCOUNTER 2020-01-25 06:08 | Emergency (ER) | payer MEDICAID, SELFPAY ==
[2020-01-25 06:14] VITALS: BP 143/97; PULSE 117; RESP 16; TEMP 36.8; O2SAT 100; BMI 42.0
--- NOTE | 2020-01-25 06:30 | CTR_ITS ---
PROCEDURE INFORMATION: Exam: CT Abdomen And Pelvis With Contrast Exam date and time: 01/25/2020 6:45 AM Age: 39 years old Clinical indication: Constipation and other: Diarrhea/ trouble urinating TECHNIQUE: Imaging protocol: Computed tomography of the abdomen and pelvis with intravenous contrast. Radiation optimization: All CT scans at this facility use at least one of these dose optimization techniques: automated exposure control; mA and/or kV adjustment per patient size (includes targeted exams where dose is matched to clinical indication); or iterative reconstruction. Contrast material: OMNI 30; Contrast volume: 95 ml; Contrast route: INTRAVENOUS (IV); COMPARISON: No relevant prior studies available. RADIATION DOSE METRICS: Total DLP (mGy-cm): 1980.43 FINDINGS: Lungs: No acute basilar lung consolidation. Liver: There is fatty change involving the liver parenchyma. Gallbladder and bile ducts: Prior cholecystectomy. No biliary ductal dilatation allowing for that. Pancreas: No pancreatic mass. No peripancreatic inflammation. No pancreatic ductal dilation. Spleen: The spleen is homogeneous and is not enlarged. There is an accessory splenule. Adrenals: No adrenal mass. Kidneys and ureters: No hydronephrosis, nephrolithiasis, or renal mass. Stomach and bowel: No bowel obstruction, colitis or diverticulitis. There is fluid in the distal small bowel and colon which could be due to an enteritis. Appendix: The appendix has a normal caliber with no wall thickening. No periappendiceal stranding. Intraperitoneal space: No ascites or pneumoperitoneum. Vasculature: The abdominal aorta and iliofemoral arteries are normal. The mesenteric arteries are patent. The mesenteric, portal, and hepatic veins are patent. Lymph nodes: No pathologically enlarged lymph nodes. Bladder: The urinary bladder is small in volume. No bladder calculus. Reproductive: Unremarkable as visualized. Bones/joints: There is bilateral spondylolysis at L5. There is a minimal grade 1 spondylolisthesis of L5 on S1. Soft tissues: Small umbilical hernia containing fat. CT/CT abdomen pelvis w con* [id number] IMPRESSION: 1. No bowel obstruction, colitis or diverticulitis. Possible enteritis. 2. No urinary tract calculus or obstruction. The bladder is not distended. Radiation Dose CTDIVOL = (mGy): DLP = 1980.43 (mGy-cm)
--- NOTE | 2020-01-25 06:40 | W.ED.GENADLT ---
HPI - General Adult General: Chief complaint: General Medical Stated complaint: NO BM Time Seen by Provider: 01/25/20 06:14 History of Present Illness: HPI narrative: Patient complains of constipation for the past 2 months. Onset (ago): month(s) Severity: severe Pain Consistency: constant Treatments prior to arrival: none Review of Systems General: Reports: 10 or more systems reviewed and unremarkable except in HPI and below GI: Reports: constipation PFSH ED PFSH: Family History Mother Angioedema Father Hypertension Grandfather Cancer SKIN Other Diabetes Social History Smoking and tobacco status: current every day smoker Alcohol intake: current Alcohol intake frequency: 3 or more drinks per day Alcohol type: hard liquor Lives independently: No Household members: friend(s) Housing: House Marital status: Number of children: 2 Pets and animals: Yes History of recent travel: No Female Reproductive History: Date of last menstrual period: 12/31/19 Physical Exam Const: COMMON NORMALS: no acute distress, healthy appearing and well nourished GENERAL APPEARANCE: cooperative and well developed HENMT: COMMON NORMALS: normocephalic and atraumatic HEAD & SCALP: normal to inspection, normocephalic and atraumatic Eye: GENERAL EYE: appearance normal, both eyes and all related structures Neck/C-Spine: COMMON NORMALS: full ROM, no lymphadenopathy and no meningeal signs GENERAL: Yes normal visual inspection CERVICAL SPINE: Yes cervical ROM normal and Yes normal cervical lordosis Chest: COMMONS NORMALS: normal inspection of the chest and normal palpation of entire chest wall Resp: COMMON NORMALS: normal respiratory effort, clear to auscultation bilaterally and percussion normal AUSCULTATION: clear to auscultation bilaterally PERCUSSION: percussion normal Cardio: COMMON NORMALS: regular rate, regular rhythm, S1 normal heart sound present and S2 normal heart sound present JUGULAR VENOUS DISTENTION: no JVD PALPATION: normal PMI RATE: regular rate RHYTHM: regular rhythm HEART SOUNDS: S1 normal heart sound present and S2 normal heart sound present GI: COMMON NORMALS: Soft to palpation and No hepatosplenomegaly present INSPECTION: Yes normal to inspection PALPATION: Yes Soft to palpation and Yes No hepatosplenomegaly present PERCUSSION: normal to percussion : COMMON NORMALS: Yes no CVA tenderness BLADDER/KIDNEY EXAM: Yes no CVA tenderness Back/Pelvis: COMMON NORMALS: no CVA tenderness, thoracic and lumbar spine normal to inspection and thoraco-lumbar ROM normal Extremity: COMMON NORMALS: normal to inspection, full ROM and capillary refill normal Neuro: MENINGEAL SIGNS: Yes no meningeal signs Skin: COMMON NORMALS: no rashes or lesions noted, no wounds and turgor normal GENERAL SKIN EXAM: no rashes or lesions noted, elasticity normal and turgor normal LESIONS: no lesions RASHES: no rashes TRAUMA: no lacerations or abrasions HAIR: normal NAILS: normal Course Vital Signs: Vital signs: Vital Signs Temperature 98.3 F 01/25/20 06:14 Pulse Rate 117 H 01/25/20 06:14 Respiratory Rate 16 01/25/20 06:14 Blood Pressure 143/97 01/25/20 06:14 Pulse Oximetry 100 01/25/20 06:14 [facility] - General Adult Lab Data: Labs: Lab Results 01/25/20 01/25/20 01/25/20 Range/Units 06:44 06:44 07:15 WBC 9.9 (4.0-10.0) 10^3/ uL RBC 4.45 (4.1-5.3) 10^6/u L Hgb 15.0 (11.5-15.3) g/dL Hct 45.7 (37.0-47.0) % MCV 102.7 H (81-99) fL MCH 33.7 (28.0-34.0) pg MCHC 32.8 (30.0-36.0) g/dL RDW 13.8 (12.1-15.1) % Plt Count 223 (130-400) 10^3/c mm MPV 10.7 H (7.4-10.4) fL Neut % (Auto) 61.2 % Lymph % (Auto) 24.9 % Mineral % (Auto) 9.8 % Eos % (Auto) 3.0 % Baso % (Auto) 0.8 % Neut # (Auto) 6.1 (1.8-7.7) 10^3/u L Lymph # (Auto) 2.5 (0.8-4.8) 10^3/u L Mineral # (Auto) 1.0 H (0.2-0.9) 10^3/u L Eos # (Auto) 0.3 (0.0-0.8) 10^3/u L Baso # (Auto) 0.1 (0.0-0.1) 10^3/u L Nucleated RBC % (a uto) 0 % Nucleated RBCs # 0.0 /100WBC Sodium 140 (136-145) mmol/L Potassium 3.7 (3.5-5.1) mmol/L Chloride 100 (98-107) mmol/L Carbon Dioxide 23 (22-29) mmol/L Anion Gap 20.7 H (5-19) BUN 8 (6-20) mg/dL Creatinine 0.6 (0.5-0.9) mg/dL GFR Calculation 112.5 (90-130) mL/min Glucose 103 (65-115) mg/dL Calculated Osmolal ity 286 (285-295) mOsm/k g Calcium 9.4 (8.5-10.5) mg/dL Total Bilirubin 0.4 (0.15-1.2) mg/dL AST 102 H (0-32) U/L ALT 102 H (0-33) U/L Alkaline Phosphata se 95 (35-105) IU/L Total Protein 8.3 (6.6-8.7) g/dL Albumin 4.7 (3.5-5.2) g/dL Globulin 3.6 (1.3-4.6) g/dL Lipase 28 (13-60) U/L HCG, Qual Negative (Negative) Urine Color (Yellow) Urine Appearance (CLEAR) Urine pH (5-7) Ur Specific Gravit y (1.005-1.030) Urine Protein (Negative) Urine Glucose (UA) (Normal) Urine Ketones (Negative) Urine Blood (Negative) Urine Nitrate (Negative) Urine Bilirubin (NEGATIVE) Urine Urobilinogen (Negative) mg/dL Ur Leukocyte Keya ase (Negative) Urine RBC (0-2) /hpf Urine WBC (0-5) /hpf Ur Squamous Epith Cells (0-5) Urine Bacteria (NONE) Urine Mucus 01/25/20 Range/Units 07:15 WBC (4.0-10.0) 10^3/ uL RBC (4.1-5.3) 10^6/u L Hgb (11.5-15.3) g/dL Hct (37.0-47.0) % MCV (81-99) fL MCH (28.0-34.0) pg MCHC (30.0-36.0) g/dL RDW (12.1-15.1) % Plt Count (130-400) 10^3/c mm MPV (7.4-10.4) fL Neut % (Auto) % Lymph % (Auto) % Mineral % (Auto) % Eos % (Auto) % Baso % (Auto) % Neut # (Auto) (1.8-7.7) 10^3/u L Lymph # (Auto) (0.8-4.8) 10^3/u L Mineral # (Auto) (0.2-0.9) 10^3/u L Eos # (Auto) (0.0-0.8) 10^3/u L Baso # (Auto) (0.0-0.1) 10^3/u L Nucleated RBC % (a uto) % Nucleated RBCs # /100WBC Sodium (136-145) mmol/L Potassium (3.5-5.1) mmol/L Chloride (98-107) mmol/L Carbon Dioxide (22-29) mmol/L Anion Gap (5-19) BUN (6-20) mg/dL Creatinine (0.5-0.9) mg/dL GFR Calculation (90-130) mL/min Glucose (65-115) mg/dL Calculated Osmolal ity (285-295) mOsm/k g Calcium (8.5-10.5) mg/dL Total Bilirubin (0.15-1.2) mg/dL AST (0-32) U/L ALT (0-33) U/L Alkaline Phosphata se (35-105) IU/L Total Protein (6.6-8.7) g/dL Albumin (3.5-5.2) g/dL Globulin (1.3-4.6) g/dL Lipase (13-60) U/L HCG, Qual (Negative) Urine Color Yellow (Yellow) Urine Appearance Sl hazy (CLEAR) Urine pH 6 (5-7) Ur Specific Gravit y 1.020 (1.005-1.030) Urine Protein Neg (Negative) Urine Glucose (UA) Norm (Normal) Urine Ketones 1+ H (Negative) Urine Blood 2+ H (Negative) Urine Nitrate Negative (Negative) Urine Bilirubin Neg (NEGATIVE) Urine Urobilinogen Norm (Negative) mg/dL Ur Leukocyte Keya ase Negative (Negative) Urine RBC 5-10 H (0-2) /hpf Urine WBC None (0-5) /hpf Ur Squamous Epith Cells 10-15 H (0-5) Urine Bacteria Trace (NONE) Urine Mucus 1+ Discharge Plan Discharge Patient Disposition: Home, Self-Care Clinical Impression: Abdominal pain Qualifiers: Abdominal location: generalized Qualified Code(s): R10.84 - Generalized abdominal pain Condition: Stable Prescriptions: No Action No Known Home Medications RF: 0 doxepin 10 mg Capsule 10 mg PO BEDTIME 30 Days Qty: 30 RF: 1 aripiprazole 10 mg Tablet 10 mg PO DAILY 30 Days Qty: 30 RF: 1 Discharge Orders: Discharge Order (Routine); Ordered 01/25/20 Ordered By: Adolfo Small Referrals: Jose Alejandro Parada, TICKET ATTENDANT [Primary Care Provider] - Patient Instructions: Cholecystitis (ED), Abdominal Pain (ED) Coding Level of Care Code ED Rehabilitation Consultant for Chg Fwd Exam Comprehensive
[2020-01-25 07:11] LABS: Basophils # 0.1 10^3/uL (0.0-0.1); Basophils % 0.8 %; Eosinophils # 0.3 10^3/uL (0.0-0.8); Hematocrit 45.7 % (37.0-47.0); Lymphocytes # 2.5 10^3/uL (0.8-4.8); Lymphocytes % 24.9 %; Mean Corpuscular HGB Conc 32.8 g/dL (30.0-36.0); Mean Corpuscular Hemoglobin 33.7 pg (28.0-34.0); Mean Corpuscular Volume 102.7 fL (81-99); Mean Platelet Volume 10.7 fL (7.4-10.4); Monocytes % 9.8 %; Neutrophils # 6.1 10^3/uL (1.8-7.7); Neutrophils % 61.2 %; Nucleated Red Blood Cells % 0 %; Platelet Count 223 10^3/cmm (130-400); Red Blood Count 4.45 10^6/uL (4.1-5.3); Red Cell Distribution Width 13.8 % (12.1-15.1); White Blood Count 9.9 10^3/uL (4.0-10.0)
[2020-01-25 07:20] LABS: Alanine Aminotransferase 102 U/L (0-33); Albumin Level 4.7 g/dL (3.5-5.2); Alkaline Phosphatase 95 IU/L (35-105); Anion Gap 20.7 (5-19); Aspartate Amino Transferase 102 U/L (0-32); Blood Urea Nitrogen 8 mg/dL (6-20); Calcium 9.4 mg/dL (8.5-10.5); Carbon Dioxide 23 mmol/L (22-29); Chloride 100 mmol/L (98-107); Creatinine Clr Calc Pharmacy 150.8624; Globulin 3.6 g/dL (1.3-4.6); Glomerular Filtration Rate 112.5 mL/min (90-130); Glucose 103 mg/dL (65-115); Lipase 28 U/L (13-60); Osmolality Calculated 286 mOsm/kg (285-295); Potassium 3.7 mmol/L (3.5-5.1); Sodium 140 mmol/L (136-145); Total Bilirubin 0.4 mg/dL (0.15-1.2); Total Protein 8.3 g/dL (6.6-8.7)
[2020-01-25 07:44] LABS: HCG Qualitative Urine. Negative (Negative)
[2020-01-25 07:47] LABS: Urine Appearance SL Hazy (CLEAR); Urine Color Yellow (Yellow); pH Urine 6 (5-7)
--- NOTE | 2020-01-25 07:47 | PC.NURSE ---
pt transported to CT by wheelchair with tech
[2020-01-25 07:48] LABS: Add Urine Microscopic? YES; Bilirubin Urine Neg (NEGATIVE); Blood Urine 2+ (Negative); Glucose Urine UA Norm (Normal); Ketones Urine 1+ (Negative); Leukocyte Esterase Urine Negative (Negative); Nitrate Urine Negative (Negative); Protein Urine Neg (Negative); Urobilinogen Urine Norm (Negative)
[2020-01-25 07:49] LABS: Bacteria Urine TRACE; Mucus Urine 1+
[2020-01-25 07:50] LABS: Add Urine Culture? No
[2020-01-25] MEDS: iohexol 300 mg/mL 100 mL Btl IV (07:59)
[2020-01-25 08:56] VITALS: BP 144/93; PULSE 94; O2SAT 97
== END 2020-01-25 08:56 | disposition home or self-care (01) ==
PROVIDERS: Emergency Provider Family Medicine; PCP Nurse Practitioner
DX: R10.84 Generalized abdominal pain (principal); F17.210 Nicotine dependence, cigarettes, uncomplicated
CPT/HCPCS: 12345; 74177; 80053; 81001; 81025; 83690; 85025; 99283; Q9967

== ENCOUNTER → 2020-05-10 13:54 | Outpatient (BNVA) | payer MEDICAID, SELFPAY | PROVIDERS: PCP Nurse Practitioner; Visit Provider Nurse Practitioner Family | DX: Z11.59 Encounter for screening for other viral diseases (principal) | CPT/HCPCS: 87635 ==

== ENCOUNTER 2020-06-27 18:41 | Emergency (ER) | payer MEDICAID, SELFPAY ==
[2020-06-27 18:45] VITALS: BP 163/104; PULSE 112; RESP 18; TEMP 36.5; O2SAT 100; BMI 42.0
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
[2020-06-27 19:15] VITALS: BP 133/95; PULSE 111; RESP 16; O2SAT 97
[2020-06-27] MEDS: HYDROcodone-acetaminophen 7.5-325 mg Tablet 1 TAB PO (19:41)
[2020-06-27 19:45] VITALS: BP 128/94; PULSE 109; RESP 16; O2SAT 98
[2020-06-27 19:51] LABS: Basophils # 0.1 10^3/uL (0.0-0.1); Basophils % 0.6 %; Eosinophils # 0.2 10^3/uL (0.0-0.8); Eosinophils % 1.3 %; Hematocrit 41.8 % (37.0-47.0); Hemoglobin 13.7 g/dL (11.5-15.3); Lymphocytes # 1.7 10^3/uL (0.8-4.8); Lymphocytes % 14.5 %; Mean Corpuscular HGB Conc 32.8 g/dL (30.0-36.0); Mean Corpuscular Hemoglobin 35.2 pg (28.0-34.0); Mean Corpuscular Volume 107.5 fL (81-99); Mean Platelet Volume 11.1 fL (7.4-10.4); Monocytes # 0.9 10^3/uL (0.2-0.9); Monocytes % 7.4 %; Neutrophils # 8.82 10^3/uL (1.8-7.7); Neutrophils % 75.4 %; Nucleated Red Blood Cells % 0 %; Platelet Count 216 10^3/cmm (130-400); Red Blood Count 3.89 10^6/uL (4.1-5.3); Red Cell Distribution Width 12.4 % (12.1-15.1); White Blood Count 11.7 10^3/uL (4.0-10.0)
[2020-06-27 19:59] LABS: HCG, Serum Qual Negative (Negative)
[2020-06-27 20:06] LABS: Alanine Aminotransferase 184 U/L (0-33); Albumin Level 4.6 g/dL (3.5-5.2); Alkaline Phosphatase 110 IU/L (35-105); Anion Gap 18.2 (5-19); Aspartate Amino Transferase 323 U/L (0-32); Blood Urea Nitrogen 7 mg/dL (6-20); Calcium 9.2 mg/dL (8.5-10.5); Carbon Dioxide 22 mmol/L (22-29); Chloride 102 mmol/L (98-107); Globulin 2.7 g/dL (1.3-4.6); Glomerular Filtration Rate 179.6 mL/min (90-130); Glucose 107 mg/dL (65-115); Osmolality Calculated 286 mOsm/kg (285-295); Potassium 3.2 mmol/L (3.5-5.1); Sodium 139 mmol/L (136-145); Total Bilirubin 0.3 mg/dL (0.15-1.2); Total Protein 7.3 g/dL (6.6-8.7)
[2020-06-27] MEDS: iohexol 300 mg/mL 100 mL Btl IV (20:32)
[2020-06-27 21:02] VITALS: RESP 16; O2SAT 97
[2020-06-27] MEDS: morphine 4 mg/mL SDV 1 mL IVP (21:02)
[2020-06-27] MEDS: ondansetron 2 mg/ML SDV 2 mL 4 MG IVP (21:03)
[2020-06-27 21:09] VITALS: BP 135/89; PULSE 108; RESP 14; O2SAT 99
[2020-06-27] MEDS: HYDROcodone-acetaminophen 7.5-325 mg Tablet 2 TAB PO (22:07)
[2020-06-27 22:15] VITALS: BP 145/98; PULSE 105; RESP 18; O2SAT 100
--- NOTE | 2020-06-28 10:51 | DCPLANNER ---
talent program manager had message to schedule a follow up appointment for patient with ortho. talent program manager called the ortho clinic, spoke with Lisa, gave clinic patients information. talent program manager was told that patients information would be printed and reviewed. Clinic will call patient with appointment information.
--- NOTE | 2020-06-30 10:26 | DCPLANNER ---
Patient has a follow up appointment scheduled for Monday, July 06, [address] at 2:[address] Serna. Clinic will call patient with appointment information.
--- NOTE | 2020-07-20 15:06 | DCPLANNER ---
Addendum entered by Danyell Gunter 07/20/20 15:07: patient did not attend appointment. Original Note: Patient had a follow up appointment scheduled for 07.06.20 with ortho - patient did attend appointment.
== END 2020-06-27 22:21 | disposition home or self-care (01) ==
PROVIDERS: Emergency Provider Physician Assistant; PCP Nurse Practitioner
DX: S22.31XA Fracture of one rib, right side, initial encounter for closed fracture (principal); M43.8X4 Other specified deforming dorsopathies, thoracic region; F17.210 Nicotine dependence, cigarettes, uncomplicated; V58.6XXA Passenger in pick-up truck or van injured in noncollision transport accident in traffic accident, initial encounter
CPT/HCPCS: 12345; 36415; 70450; 71260; 72128; 73130; 74177; 80053; 84703; 85025; 96374; 96375; 99283; J2270; J2405; Q9967

== ENCOUNTER 2020-08-03 15:58 | Outpatient (CLI) | payer MEDICAID, SELFPAY ==
--- NOTE | 2020-08-03 16:00 | MR_ITS ---
WS: [id number] MRI THORACIC SPINE WITHOUT CONTRAST TECHNIQUE: Sagittal T1, T2 and STIR imaging. Axial T2 imaging. Noncontrast imaging obtained. CLINICAL INFORMATION: T2 AND T4 WEDGE COMPRESSION FRACTURE, INITIAL ENCOUNTER COMPARISON: CT June 27, 2020 FINDINGS: Normal thoracic alignment. Minimal wedge compression fractures involving the T2 and T4 superior endpl ates. No retropulsion. Tiny amount of compression T3 superior endplate. Trace edema at these levels. No retropulsion. No other compression fractures. A few Schmorl's nodes in the mid and lower thoracic spine. Cord signal is normal. No significant disc extrusions or protrusions. MR/MR thoracic spin wo con* [id number] IMPRESSION: 1. Mild compression superior endplates T2 and T4 with a tiny trace of edema co nsistent with acute to subacute compression. No retropulsion. 2. Additional tiny amount of compression involving superior endplate T3 also a ppears recent. 3. Cord signal is normal. No significant central canal stenosis.
== END 2020-08-03 15:59 | disposition home or self-care (01) ==
LOC: RADSHAW 16:02
PROVIDERS: PCP Nurse Practitioner; Visit Provider Nurse Practitioner
DX: S22.020A Wedge compression fracture of second thoracic vertebra, initial encounter for closed fracture (principal); S22.040A Wedge compression fracture of fourth thoracic vertebra, initial encounter for closed fracture; X58.XXXA Exposure to other specified factors, initial encounter
CPT/HCPCS: 72146

== ENCOUNTER 2021-05-19 21:00 | Emergency (ER) | payer MEDICAID, SELFPAY ==
[2021-05-19 21:20] VITALS: BP 137/90; PULSE 120; RESP 18; TEMP 36.6; O2SAT 97; BMI 41.3
--- NOTE | 2021-05-19 21:31 | CTR_ITS ---
PROCEDURE INFORMATION: Exam: CTA Chest With Contrast Exam date and time: 05/19/2021 9:31 PM Age: 40 years old Clinical indication: Abdominal pain; Generalized; Other: Tachycardic; Prior surgery; Surgery type: Gb. Tubal; Patient HX: Sternal pain with tachycardia. Diffuse abd pain with constipation. Weight gain. History of hepatitis. ; Additional info: Tachy, reported cancer history, abd distension and pain TECHNIQUE: Imaging protocol: Computed tomographic angiography of the chest with contrast. 3D rendering (Not supervised by radiologist): MIP and/or 3D reconstructed images were created by the technologist. Radiation optimization: All CT scans at this facility use at least one of these dose optimization techniques: automated exposure control; mA and/or kV adjustment per patient size (includes targeted exams where dose is matched to clinical indication); or iterative reconstruction. Contrast material: OMNI 350; Contrast volume: 148 ml; Contrast route: INTRAVENOUS (IV); COMPARISON: CT chest abd pel w con* 06/27/2020 8:14 PM RADIATION DOSE METRICS: Total DLP (mGy-cm): 2890.3 FINDINGS: Pulmonary arteries: Normal. No pulmonary emboli. Aorta: Unremarkable. No aortic aneurysm. No aortic dissection. Lungs: Unremarkable. No consolidation. No masses. Pleural spaces: Unremarkable. No pneumothorax. No pleural effusion. Heart: Unremarkable. No cardiomegaly. No pericardial effusion. Lymph nodes: Unremarkable. No enlarged lymph nodes. Bones/joints: There are old healing right rib fractures. No acute fracture. Soft tissues: Unremarkable. IMPRESSION: No acute findings. PROCEDURE INFORMATION: Exam: CT Abdomen And Pelvis With Contrast Exam date and time: 05/19/2021 9:31 PM Age: 40 years old Clinical indication: Abdominal pain; Generalized; Other: Tachycardic; Prior surgery; Surgery type: Gb. Tubal; Patient HX: Sternal pain with tachycardia. Diffuse abd pain with constipation. Weight gain. History of hepatitis. ; Additional info: Tachy, reported cancer history, abd distension and pain TECHNIQUE: Imaging protocol: Computed tomography of the abdomen and pelvis with contrast. Radiation optimization: All CT scans at this facility use at least one of these dose optimization techniques: automated exposure control; mA and/or kV adjustment per patient size (includes targeted exams where dose is matched to clinical indication); or iterative reconstruction. Contrast material: OMNI 350; Contrast volume: 148 ml; Contrast route: INTRAVENOUS (IV); COMPARISON: CT chest abd pel w con* 06/27/2020 8:14 PM RADIATION DOSE METRICS: Total DLP (mGy-cm): 2890.3 FINDINGS: Liver: Findings consistent with fatty infiltration of the liver are identified. No liver mass is identified. Gallbladder and bile ducts: There has been a cholecystectomy. Pancreas: Normal. No ductal dilation. Spleen: Normal. No splenomegaly. Adrenal glands: Normal. No mass. Kidneys and ureters: Normal. No hydronephrosis. Stomach and bowel: There is wall thickening of the ascending colon. No bowel obstruction. Appendix: No evidence of appendicitis. Intraperitoneal space: Unremarkable. No free air. No significant fluid collection. Vasculature: Unremarkable. No abdominal aortic aneurysm. Lymph nodes: Unremarkable. No enlarged lymph nodes. Urinary bladder: Unremarkable as visualized. Reproductive: Unremarkable as visualized. Bones/joints: Unremarkable. No acute fracture. Soft tissues: Unremarkable. CT/CT angio chest w abd pel w con IMPRESSION: Findings are suggestive of colitis of the ascending colon.Clinical correlation is advised. Radiation Dose CTDIVOL = (mGy): DLP = 2890.3~2890.3 (mGy-cm)
[2021-05-19 21:43] LABS: Basophils # 0.1 10^3/uL (0.0-0.1); Basophils % 0.7 %; Eosinophils # 0.2 10^3/uL (0.0-0.8); Eosinophils % 1.9 %; Hematocrit 33.9 % (37.0-47.0); Hemoglobin 11.1 g/dL (11.5-15.3); Lymphocytes # 1.9 10^3/uL (0.8-4.8); Lymphocytes % 17.9 %; Mean Corpuscular HGB Conc 32.7 g/dL (30.0-36.0); Mean Corpuscular Hemoglobin 36.8 pg (28.0-34.0); Mean Corpuscular Volume 112.3 fl (81-99); Mean Platelet Volume 10.2 fL (7.4-10.4); Monocytes # 1.1 10^3/uL (0.2-0.9); Monocytes % 9.7 %; Neutrophils # 7.45 10^3/uL (1.8-7.7); Neutrophils % 69.3 %; Nucleated Red Blood Cells % 0 %; Platelet Count 267 10^3/cmm (130-400); Red Blood Count 3.02 10^6/uL (4.1-5.3); Red Cell Distribution Width 15.7 % (12.1-15.1); White Blood Count 10.8 10^3/uL (4.0-10.0)
[2021-05-19 22:04] LABS: Alanine Aminotransferase 25 U/L (0-33); Albumin Level 3.3 g/dL (3.5-5.2); Alkaline Phosphatase 245 IU/L (35-105); Anion Gap 15.7 (5-19); Aspartate Amino Transferase 102 U/L (0-32); Blood Urea Nitrogen 7 mg/dL (6-20); Calcium 8.1 mg/dL (8.5-10.5); Carbon Dioxide 23 mmol/L (22-29); Chloride 106 mmol/L (98-107); Globulin 3.9 g/dL (1.3-4.6); Glucose 107 mg/dL (65-115); Lipase 39 U/L (13-60); Osmolality Calculated 290 mOsm/kg (285-295); Potassium 3.7 mmol/L (3.5-5.1); Sodium 141 mmol/L (136-145); Total Bilirubin 0.6 mg/dL (0.15-1.2); Total Protein 7.2 g/dL (6.6-8.7)
--- NOTE | 2021-05-19 22:31 | W.ED.ABDPA2 ---
HPI - Abdominal Pain General: Chief Complaint: Abdominal Pain Stated Complaint: Adominal Pain Time Seen by Provider: 05/19/21 22:31 History of Present Illness: HPI narrative: Ms. Stiles is a 40-year-old lady with significant past medical history of anxiety, alcohol abuse and reported history of ovarian mass and possible colon cancer diagnosis who presents emergency department due to abdominal distention and generalized symptoms. She reports initially being told about an ovarian mass which was reportedly biopsied 2018 however did not ever see the results and was lost to follow-up. Over the past few months she has had increased abdominal distention and swelling. She notes her vagina falling out and has difficulties with urination. The symptoms have especially been bad over the past week where she notes marked fluid gain. She has mild associated lower extremity edema. Mild associated shortness of breath. No associated infectious symptoms. She additionally notes blood in stool with bowel movements, she does have a history of hemorrhoids. She was seen in [place] today and came to the emergency department. Overall the course of symptoms has been worsening. The intensity is moderate to severe. No other specific exacerbating relieving factors identified. She does continue to drink daily at least 1 pint however does have a history of heavier alcohol use with approximately 1 gallon of alcohol per day. Related Data: Date of Last Menstrual Period: 12/31/19 Review of Systems General: Reports: 10 or more systems reviewed and unremarkable except in HPI and below PFSH ED PFSH: Family History Mother Angioedema Father Hypertension Grandfather Cancer SKIN Other Diabetes Social History Smoking and tobacco status: current every day smoker Alcohol intake: current Alcohol intake frequency: 3 or more drinks per day Alcohol type: hard liquor Lives independently: No Household members: friend(s) Housing: House Marital status: Number of children: 2 Pets and animals: Yes History of recent travel: No Female Reproductive History: Date of last menstrual period: 12/31/19 Physical Exam Narrative: EXAM NARRATIVE: GENERAL/CONSTITUTIONAL - well-appearing. Obese. Uncomfortable due to abdominal pain Eyes -no scleral icterus, no conjunctival injection ENMT - Atraumatic external nose and ears. NECK - supple. trachea midline CARDIOVASCULAR - regular rate and rhythm. 1+ bilateral symmetric lower extremity edema RESPIRATORY -no tachypnea. No retractions or accessory muscle use. ABDOMEN/GI -central obesity. Distended. Patient does guard. Patient stands and endorses sucking in of skin on the side however this appears symmetric and appears to be due to patient's pannus pulling weight on skin. MSK - Extremities without obvious deformity or traumatic injury. SKIN - Warm, Dry NEURO - alert and appropriately oriented. Moves all extremities equally. PSYCH -anxious Course ED course: - Patient was seen and evaluated by me at bedside - Patient placed on cardiac monitors, IV access obtained - Initial evaluation notable for exam as noted above. Challenging history with previous reported diagnoses that were not followed up on or not fully characterized. The patient provides some documentation with mildly elevated tumor markers. Patient's mother at bedside expresses significant frustration regarding the patient's current condition and medical care. -Symptom treatment ordered - Labs notable for leukocytosis, macrocytic anemia.. No significant electrolyte abnormalities. AST is elevated 4 times more than ALT consistent with alcohol use. Albumin mildly low, INR normal. Urinalysis without evidence of urinary tract infection. - Imaging notable for marked enlargement of the liver, also patient has colitis. - Upon serial reexamination after treatment the patient was similar, mildly improved. - I explained ED evaluation at this point. The patient's mother makes it challenging to establish rapport with the patient and have a reasonable discussion regarding ED evaluation. She expresses frustration regarding various aspects of care and plan as well as ED findings. - Pelvic exam performed with clinical genetics laboratory chief present. No evidence of significant organ prolapse, mucosa is normal in appearance, no protruding masses, no discharge or other significant abnormality. No external lesions. - I spoke at length with the patient and her mother. I explained that colitis likely explains some aspects of the patient's symptoms including increased abdominal pain and blood in stool and this will be treated with antibiotics. No definitive mass was identified on CT imaging. Patient does have enlarged liver. I explained that based on my laboratory findings there is no acute abnormality that would require inpatient admission. Patient's exam is not concerning for acute hypovolemia or significant active blood loss from rectal bleeding. I explained that even if I did identify a tumor and/or based on patient's abnormal tumor markers that further oncologic evaluation is not an inpatient process. Laboratory studies do not show decompensation of likely alcoholic liver disease, there is no evidence of ascites or drainable intra-abdominal fluid. -The patient does not require admission nor does she meet any admission criteria at this time. - Prescriptions, follow-up plan, return precautions were discussed. Patient verbalized understanding and though upset regarding various things felt safe for discharge. - Patient discharged in satisfactory condition. Vital Signs: Vital signs: Vital Signs Temperature 97.8 F 05/19/21 21:20 Pulse Rate 97 05/20/21 03:04 Respiratory Rate 16 05/20/21 03:04 Blood Pressure 127/80 05/20/21 03:04 Pulse Oximetry 96 05/20/21 03:04 MDM - Abdominal Pain MDM Narrative: Medical decision making narrative: Given complex history and extensive time spent in the patient's room level of medical decision making required for this encounter was high. Medical Records: Attestation: I reviewed the patient's medical records. Lab Data: Attestation: I reviewed the patient's lab results. Labs: Lab Results 05/19/21 05/19/21 05/19/21 21:33 21:33 21:53 WBC 10.8 10^3/uL H 10 ^3/uL (4.0-10.0) RBC 3.02 10^6/uL L 10 ^6/uL (4.1-5.3) Hgb 11.1 g/dL L g/dL (11.5-15.3) Hct 33.9 % L % (37.0-47.0) MCV 112.3 fl H fl (81-99) MCH 36.8 pg H pg (28.0-34.0) MCHC 32.7 g/dL g/dL (30.0-36.0) RDW 15.7 % H % (12.1-15.1) Plt Count 267 10^3/cmm 10^3 /cmm (130-400) MPV 10.2 fL fL (7.4-10.4) Neut % (Auto) 69.3 % % Lymph % (Auto) 17.9 % % [place] % (Auto) 9.7 % % Eos % (Auto) 1.9 % % Baso % (Auto) 0.7 % % Neut # (Auto) 7.45 10^3/uL 10^3 /uL (1.8-7.7) Lymph # (Auto) 1.9 10^3/uL 10^3/ uL (0.8-4.8) [place] # (Auto) 1.1 10^3/uL H 10^ 3/uL (0.2-0.9) Eos # (Auto) 0.2 10^3/uL 10^3/ uL (0.0-0.8) Baso # (Auto) 0.1 10^3/uL 10^3/ uL (0.0-0.1) Nucleated RBC % (a uto) 0 % % Nucleated RBCs # 0.0 /100WBC /100W BC PT 14.50 SECONDS SEC ONDS (12.1-14.9) INR 1.10 (0.8-1.2) Sodium 141 mmol/L mmol/L (136-145) Potassium 3.7 mmol/L mmol/L (3.5-5.1) Chloride 106 mmol/L mmol/L (98-107) Carbon Dioxide 23 mmol/L mmol/L (22-29) Anion Gap 15.7 (5-19) BUN 7 mg/dL mg/dL (6-20) Creatinine 0.3 mg/dL L mg/dL (0.5-0.9) GFR Calculation 249.0 mL/min H mL /min (90-130) Glucose 107 mg/dL mg/dL (65-115) Calculated Osmolal ity 290 mOsm/kg mOsm/ kg (285-295) Calcium 8.1 mg/dL L mg/dL (8.5-10.5) Total Bilirubin 0.6 mg/dL mg/dL (0.15-1.2) AST 102 U/L H U/L (0-32) ALT 25 U/L U/L (0-33) Alkaline Phosphata se 245 IU/L H IU/L (35-105) Total Protein 7.2 g/dL g/dL (6.6-8.7) Albumin 3.3 g/dL L g/dL (3.5-5.2) Globulin 3.9 g/dL g/dL (1.3-4.6) Lipase 39 U/L U/L (13-60) HCG, Qual Urine Color Urine Appearance Urine pH Ur Specific Gravit y Urine Protein Urine Glucose (UA) Urine Ketones Urine Blood Urine Nitrate Urine Bilirubin Urine Urobilinogen Ur Leukocyte [place] a[place] 05/19/21 05/20/21 21:53 00:05 WBC RBC Hgb Hct MCV MCH MCHC RDW Plt Count MPV Neut % (Auto) Lymph % (Auto) [place] % (Auto) Eos % (Auto) Baso % (Auto) Neut # (Auto) Lymph # (Auto) [place] # (Auto) Eos # (Auto) Baso # (Auto) Nucleated RBC % (a uto) Nucleated RBCs # PT INR Sodium Potassium Chloride Carbon Dioxide Anion Gap BUN Creatinine GFR Calculation Glucose Calculated Osmolal ity Calcium Total Bilirubin AST ALT Alkaline Phosphata se Total Protein Albumin Globulin Lipase HCG, Qual Negative (Negative) Urine Color Dark yellow (Yellow) Urine Appearance Clear (CLEAR) Urine pH 7.0 (5-7) Ur Specific Gravit y 1.010 (1.005-1.030) Urine Protein Neg (Negative) Urine Glucose (UA) Norm (Normal) Urine Ketones Negative (Negative) Urine Blood Neg (Negative) Urine Nitrate Negative (Negative) Urine Bilirubin Neg (Negative) Urine Urobilinogen 1 mg/dL H mg/dL (Negative) Ur Leukocyte [place] Negative (Negative) Discharge Plan Discharge Patient Disposition: Home Clinical Impression: Colitis, Abdominal pain, Abnormal transaminases, Anemia, macrocytic Condition: Stable Prescriptions: New oxycodone 5 mg tablet 5 mg PO Q4H PRN (Reason: pain) Qty: 14 RF: 0 Augmentin 875-125 mg tablet 1 tab PO Q12H Qty: 20 RF: 0 No Action doxepin 10 mg Capsule 10 mg PO BEDTIME 30 Days Qty: 30 RF: 1 aripiprazole 10 mg Tablet 10 mg PO DAILY 30 Days Qty: 30 RF: 1 Robaxin-750 750 mg tablet 750 mg PO Q8H Qty: 30 RF: 0 Discharge Orders: Discharge ED (Routine); Ordered 05/20/21 Ordered By: Anthony Bush Referrals: Jose Alejandro Parada DRAFTING ENGINEER [Primary Care Provider] - Discharge Diet: Advance as tolerated and Clear Liquid Discharge Activity: Resume usual activity Patient Instructions: Abdominal Pain (ED), Colitis (ED), Opioid Safety Activity Restrictions/Additional Instructions: Followup with PCP and learning administrator. Return as needed. Coding Level of Care Code ED Financial Institution Manager for Con Sanchez
[2021-05-19 23:03] VITALS: BP 138/95; PULSE 107; RESP 18; O2SAT 96
[2021-05-19] MEDS: fentaNYL 50 mcg/mL INJ 2mL 75 MCG IVP (23:20)
[2021-05-19 23:32] LABS: HCG, Serum Qual Negative (Negative)
[2021-05-19 23:33] VITALS: BP 119/80; PULSE 100; RESP 16; O2SAT 96
[2021-05-19] MEDS: iohexol 350 mg/mL 100 mL Btl IV ×2 (23:43→23:53)
--- NOTE | 2021-05-19 23:57 | PC.NURSE ---
Unable to provide a urine specimen. Will try again in a few minutes.
[2021-05-20 00:23] LABS: Add Urine Microscopic? NO; Charge for UA Resulting for Rev
[2021-05-20 00:35] LABS: Bilirubin Urine Neg (Negative); Blood Urine Neg (Negative); Glucose Urine UA Norm (Normal); Ketones Urine Negative (Negative); Nitrate Urine Negative (Negative); Protein Urine Neg (Negative); Urine Appearance Clear (CLEAR); Urine Color Dark Yellow (Yellow); Urobilinogen Urine 1 mg/dL (Negative)
[2021-05-20 00:44] LABS: Leukocyte Esterase Urine Negative (Negative)
[2021-05-20] MEDS: ketorolac 30 mg/mL INJ 15 MG IVP (01:37)
[2021-05-20] MEDS: fentaNYL 50 mcg/mL INJ 2mL 75 MCG IVP (01:37)
[2021-05-20] MEDS: acetaminophen 500 mg Tablet 650 MG PO (01:37)
[2021-05-20 01:49] VITALS: BP 135/86; PULSE 99; RESP 20; O2SAT 96
--- NOTE | 2021-05-20 02:54 | PC.NURSE ---
Assisted Dr. Bush with pelvic exam. Pt tolerated well.
[2021-05-20 03:04] VITALS: BP 127/80; PULSE 97; RESP 16; O2SAT 96
[2021-05-20] MEDS: oxyCODONE 5 mg IR Tab/Cap PO (03:09)
--- NOTE | 2021-05-23 15:46 | DCPLANNER ---
air export logistics manager had message to schedule a follow up appointment for patient with [facility]. air export logistics manager called the [facility], spoke with Castillo, gave clinic patients information. air export logistics manager was told that patients information would be printed and reviewed. Clinic will call patient with appointment information.
--- NOTE | 2021-06-16 10:45 | DCPLANNER ---
Patient has a follow up appointment scheduled for Thursday, July 15, 2021 at 10:[address] Brower at [facility]. Clinic will call patient with appointment information.
--- NOTE | 2021-07-29 11:44 | DCPLANNER ---
Patient had a follow up appointment scheduled for 07.15.21 with [facility] - patient did not attend appointment.
== END 2021-05-20 03:17 | disposition home or self-care (01) ==
PROVIDERS: Emergency Provider Emergency Medicine; PCP Nurse Practitioner
DX: K52.9 Noninfective gastroenteritis and colitis, unspecified (principal); R74.01 Elevation of levels of liver transaminase levels; D53.9 Nutritional anemia, unspecified; F17.210 Nicotine dependence, cigarettes, uncomplicated
CPT/HCPCS: 71275; 74177; 80053; 81003; 83690; 84703; 85025; 85610; 96374; 96375; 96376; 99284; E0352; J1885; J3010; Q9967

== ENCOUNTER → 2021-10-24 11:57 | Outpatient (BNVA) | payer MEDICAID, SELFPAY | PROVIDERS: PCP Nurse Practitioner; Visit Provider Family Medicine | DX: R30.0 Dysuria (principal) | CPT/HCPCS: 81000 ==

== ENCOUNTER → 2021-11-16 14:10 | Outpatient (BNVA) | payer MEDICAID, SELFPAY | PROVIDERS: PCP Nurse Practitioner; Visit Provider Surgery | DX: K70.31 Alcoholic cirrhosis of liver with ascites (principal); F17.210 Nicotine dependence, cigarettes, uncomplicated | CPT/HCPCS: 99213 ==

== ENCOUNTER 2021-12-03 21:57 | Emergency (ER) | payer MEDICAID, SELFPAY ==
[2021-12-03 22:10] VITALS: BP 112/60; PULSE 99; RESP 18; TEMP 36.8; O2SAT 90; BMI 32.1
--- NOTE | 2021-12-03 22:17 | CTR_ITS ---
PROCEDURE INFORMATION: Exam: CT Abdomen And Pelvis With Contrast Exam date and time: 12/03/2021 10:36 PM Age: 41 years old Clinical indication: Patient HX: C/O brb, gi bleed x 6 mos worsening today HX of alc cirrhosis; Additional info: Abd pain, melena TECHNIQUE: Imaging protocol: Computed tomography of the abdomen and pelvis with contrast. Radiation optimization: All CT scans at this facility use at least one of these dose optimization techniques: automated exposure control; mA and/or kV adjustment per patient size (includes targeted exams where dose is matched to clinical indication); or iterative reconstruction. Contrast material: OMNI 300; Contrast volume: 95 ml; Contrast route: INTRAVENOUS (IV); COMPARISON: CT angio chest w abd pel w con 05/19/2021 11:43 PM RADIATION DOSE METRICS: Total DLP (mGy-cm): 1872.08 FINDINGS: Lungs: Bibasilar atelectasis. Liver: Hepatic steatosis with a heterogeneous appearance of the liver with possible underlying multiple micro nodules, largest of which measures up to approximately 9 mm, consider further evaluation with nonemergent MRI of the liver. Gallbladder and bile ducts: Normal. No calcified stones. No ductal dilation. Pancreas: Normal. No ductal dilation. Spleen: Spleen enlarged to 14 cm. Adrenal glands: Normal. No mass. Kidneys and ureters: Normal. No hydronephrosis. Stomach and bowel: Unremarkable. No obstruction. No mucosal thickening. Appendix: No evidence of appendicitis. Intraperitoneal space: Unremarkable. No free air. No significant fluid collection. Vasculature: Unremarkable. No abdominal aortic aneurysm. Lymph nodes: Unremarkable. No enlarged lymph nodes. Urinary bladder: Unremarkable as visualized. Reproductive: Unremarkable as visualized. Bones/joints: Bilateral L5 chronic pars interarticularis defects. Soft tissues: Unremarkable. CT/CT abdomen pelvis w con* [id number] IMPRESSION: 1. Negative for focal acute inflammatory process in the abdomen or pelvis. 2. Bibasilar atelectasis. 3. Hepatic steatosis with a heterogeneous appearance of the liver with possible underlying multiple micro nodules, largest of which measures up to approximately 9 mm, consider further evaluation with nonemergent MRI of the liver. 4. Bilateral L5 chronic pars interarticularis defects. 5. Spleen enlarged to 14 cm.
[2021-12-03 22:32] LABS: Basophils # 0.1 10^3/uL (0.0-0.1); Basophils % 0.7 %; Eosinophils # 0.1 10^3/uL (0.0-0.8); Eosinophils % 0.9 %; Lymphocytes # 1.8 10^3/uL (0.8-4.8); Lymphocytes % 16.5 %; Mean Corpuscular Hemoglobin 30.7 pg (28.0-34.0); Mean Corpuscular Volume 95.8 fl (81-99); Mean Platelet Volume 10.3 fL (7.4-10.4); Monocytes # 0.7 10^3/uL (0.2-0.9); Monocytes % 6.5 %; Neutrophils % 74.9 %; Nucleated Red Blood Cells % 0 %; Platelet Count 116 10^3/cmm (130-400); Red Blood Count 2.61 10^6/uL (4.1-5.3); Red Cell Distribution Width 17.7 % (12.1-15.1); White Blood Count 10.7 10^3/uL (4.0-10.0)
[2021-12-03] MEDS: iohexol 300 mg/mL 100 mL Btl IV (22:35)
[2021-12-03 22:49] LABS: HCG, Serum Qual Negative (Negative); INR 1.74 (0.8-1.2); Partial Thromboplastin Time 41.4 SECONDS (23.9-36.7)
[2021-12-03 22:54] LABS: Alanine Aminotransferase 36 U/L (0-33); Albumin Level 3.5 g/dL (3.5-5.2); Alcohol Level 291 mg/dL (0-10); Alkaline Phosphatase 259 IU/L (35-105); Anion Gap 21.1 (5-19); Aspartate Amino Transferase 233 U/L (0-32); Blood Urea Nitrogen 9 mg/dL (6-20); C Reactive Protein 9.7 mg/L (0.0-4.9); Calcium 8.1 mg/dL (8.5-10.5); Carbon Dioxide 23 mmol/L (22-29); Chloride 97 mmol/L (98-107); Globulin 5.4 g/dL (1.3-4.6); Glomerular Filtration Rate 177.7 mL/min (90-130); Glucose 77 mg/dL (65-115); Lipase 26 U/L (13-60); Magnesium 1.8 mg/dL (1.7-2.3); Osmolality Calculated 283 mOsm/kg (285-295); Potassium 3.1 mmol/L (3.5-5.1); Sodium 138 mmol/L (136-145); Total Bilirubin 3.2 mg/dL (0.15-1.2); Total Protein 8.9 g/dL (6.6-8.7)
[2021-12-03] MEDS: sodium chloride 0.9% 1,000 ML 999 ML IV (22:59)
[2021-12-03 23:04] LABS: Acetaminophen < 5.0 ug/mL (10-30)
--- NOTE | 2021-12-04 00:54 | ED_ITS ---
HPI - Abdominal Pain General: Chief Complaint: Abdominal Pain Stated Complaint: ABD PAIN/GI BLEED Time Seen by Provider: 12/03/21 22:05 Source: patient History of Present Illness: 41-year-old intoxicated female presenting by EMS. She states she is here for a second opinion regarding bleeding from her rectum. She has had rectal bleeding and melena at times from her rectum she tells me for the past 2 to 3 months. It is associated with ongoing belly pain. She states that she had esophageal varices that were banded in [place] a couple of months ago she was admitted 2 weeks ago in [place] again for bright red blood per rectum, and signed out AGAINST MEDICAL ADVICE. Tonight, she presents with ongoing epigastric abdominal pain, which she relates to her banding, and some bleeding from her rectum. MD elicited complaint: abdominal pain Pertinent past history: gastrointestinal bleeding and other Onset (ago): month(s) Pain Consistency: constant Location: Epigastric and Periumbilical Severity: moderate Quality: stabbing and aching Radiation: none Migration to: no migration Exacerbating factors: movement Relieving factors: nothing Associated Symptoms: Reports anorexia, GI cramping, hematochezia, loose stools, melena and nausea; Denies dysuria, fever(s), hematemesis and vomiting Related Data: Date of Last Menstrual Period: 12/31/19 Review of Systems Const: Denies: fever(s) ENMT: Denies: throat pain Card: Denies: chest pain Resp: Denies: dyspnea (No change from baseline), productive cough or non- productive cough GI: Reports: abdominal pain, nausea, GI cramping, hematochezia and melena; Denies: vomiting or hematemesis : Denies: dysuria Neuro: Denies: headache(s) PFSH ED PFSH: Family History Mother Angioedema Father Hypertension Grandfather Cancer SKIN Other Diabetes Social History Smoking and tobacco status: current every day smoker Alcohol intake: former Former alcohol use details: 09/27 Lives independently: No Household members: friend(s) Housing: House Marital status: Number of children: 2 Pets and animals: Yes History of recent travel: No Female Reproductive History: Date of last menstrual period: 12/31/19 Physical Exam Const: GENERAL APPEARANCE: cooperative, lethargic and odor of alcohol detected ORIENTATION/CONSCIOUSNESS: Yes lethargic HENMT: COMMON NORMALS: normocephalic and atraumatic HEAD & SCALP: normocephalic and atraumatic FACE & SINUS: normal facial exam Eye: COMMON NORMALS: Equal, round and reactive pupils present and EOMs intact bilaterally SCLERA: scleral abnormal Laterality of scleral abnormality: positive bilateral scleral icterus (mild) PUPIL: Yes Equal, round and reactive pupils present Chest: COMMONS NORMALS: normal inspection of the chest Resp: COMMON NORMALS: normal respiratory effort, No use of accessory muscles and clear to auscultation bilaterally AUSCULTATION: clear to auscultation bilaterally Cardio: COMMON NORMALS: regular rate and regular rhythm RATE: regular rate RHYTHM: regular rhythm GI: COMMON NORMALS: Normal to inspection, nondistended, normoactive bowel sounds present PALPATION: Yes Tenderness to palpation present (GI) (Diffuse) Extremity: COMMON NORMALS: no pedal edema Neuro: ALBERTA COMA SCALE: document GCS findings [place] coma scale eye opening: Spontaneous [place] coma scale verbal response: Orientated [place] coma scale motor response: Obey commands [place] coma scale total score: 15 SENSORIUM/ORIENTATION: Yes lethargic SPEECH: abnormal speech Details: slurred Course Vital Signs: Vital signs: Vital Signs Temperature 98.2 F 12/03/21 22:10 Pulse Rate 100 12/04/21 01:34 Respiratory Rate 21 H 12/04/21 01:34 Blood Pressure 112/60 12/04/21 01:34 Pulse Oximetry 97 12/04/21 01:34 MDM - Abdominal Pain Medical Decision Making Mrs. Stiles has a white blood cell count of 10.7. She has a hemoglobin of 8. 2 weeks ago at [facility] it was 7.9. Her bilirubin is 3.2 tonight. It was for 2 weeks ago there. AST is 233. Lipase is normal. Her alcohol level is [address] of the abdomen pelvis reveals hepatic steatosis without acute findings otherwise. Her potassium level was 3.1. Her INR is 1.7. no definite rectal bleeding here. This appears to be quite a chronic problem for her. With a stable hemoglobin 2 weeks later, essentially normal vital signs, and no ability to perform EGD or colonoscopy on this patient due to no surgery or GI availability here, I am inclined to allow discharge for GI follow-up in [place]. Lab Data : 12/03/21 22:22 12/03/21 22:22 Labs/Radiology: Radiology Impressions Abdomen/Pelvis CT 12/03/21 22:17 IMPRESSION: 1. Negative for focal acute inflammatory process in the abdomen or pelvis. 2. Bibasilar atelectasis. 3. Hepatic steatosis with a heterogeneous appearance of the liver with possible underlying multiple micro nodules, largest of which measures up to approximately 9 mm, consider further evaluation with nonemergent MRI of the liver. 4. Bilateral L5 chronic pars interarticularis defects. 5. Spleen enlarged to 14 cm. Laboratory Results WBC 10.7 10^3/uL (4.0-10.0) H 12/03/21 22: RBC 2.61 10^6/uL (4.1-5.3) L 12/03/21 22: Hgb 8.0 g/dL (11.5-15.3) L 12/03/21: Hct 25.0 % (37.0-47.0) L 12/03/21 22: MCV 95.8 fl (81-99) 12/03/21: MCH 30.7 pg (28.0-34.0) 12/03/21: MCHC 32.0 g/dL (30.0-36.0) 12/03/21: RDW 17.7 % (12.1-15.1) H 12/03/21 22:22 Plt Count 116 10^3/cmm (130-400) L 12/03/21:22 MPV 10.3 fL (7.4-10.4) 12/03/21: Neut % (Auto) 74.9 % 12/03/21: Lymph % (Auto) 16.5 % 12/03/21: [place] % (Auto) 6.5 % 12/03/21:22 Eos % (Auto) 0.9 % 12/03/21: Baso % (Auto) 0.7 % 12/03/21: Neut # (Auto) 8.00 10^3/uL (1.8-7.7) H 12/03/21 22:22 Lymph # (Auto) 1.8 10^3/uL (0.8-4.8) 12/03/21 22:22 [place] # (Auto) 0.7 10^3/uL (0.2-0.9) 12/03/21 22:22 Eos # (Auto) 0.1 10^3/uL (0.0-0.8) 12/03/21 22:22 Baso # (Auto) 0.1 10^3/uL (0.0-0.1) 12/03/21 22:22 Nucleated RBC % (auto) 0 % 12/03/21 22: Nucleated RBCs # 0.0 /100WBC 12/03/21 22:22 PT 20.70 SECONDS (12.1-14.9) H 12/03/21 22: INR 1.74 (0.8-1.2) H 12/03/21 22:22 APTT 41.4 SECONDS (23.9-36.7) H 12/03/21 22:22 Sodium 138 mmol/L (136-145) 12/03/21 22:22 Potassium 3.1 mmol/L (3.5-5.1) L 12/03/21 22:22 Chloride 97 mmol/L (98-107) L 12/03/21 22:22 Carbon Dioxide 23 mmol/L (22-29) 12/03/21 22:22 Anion Gap 21.1 (5-19) H 12/03/21 22:22 BUN 9 mg/dL (6-20) 12/03/21 22:22 Creatinine 0.4 mg/dL (0.5-0.9) L 12/03/21 22:22 GFR Calculation 177.7 mL/min (90-130) H 12/03/21 22:22 Glucose 77 mg/dL (65-115) 12/03/21 22:22 Calculated Osmolality 283 mOsm/kg (285-295) L 12/03/21 22:22 Calcium 8.1 mg/dL (8.5-10.5) L 12/03/21 22:22 Magnesium 1.8 mg/dL (1.7-2.3) 12/03/21 22:22 Total Bilirubin 3.2 mg/dL (0.15-1.2) H 04/30/22 22:22 AST 233 U/L (0-32) H 12/03/21 22:22 ALT 36 U/L (0-33) H 12/03/21 22:22 Alkaline Phosphatase 259 IU/L (35-105) H 12/03/21 22:22 C-Reactive Protein 9.7 mg/L (0.0-4.9) H 12/03/21 22:22 Total Protein 8.9 g/dL (6.6-8.7) H 12/03/21: Albumin 3.5 g/dL (3.5-5.2) 12/03/21 22: Globulin 5.4 g/dL (1.3-4.6) H 12/03/21: Lipase 26 U/L (13-60) 12/03/21 22:22 HCG, Qual Negative (Negative) 12/03/21 22:22 Urine Color Yellow (Yellow) 12/04/21 00:43 Urine Appearance Clear (CLEAR) 12/04/21 00:43 Urine pH 7 (5-7) 12/04/21 00:43 Ur Specific [place] 1.010 (1.005-1.030) 12/04/21 00:43 Urine Protein Neg (Negative) 12/04/21 00:43 Urine Glucose (UA) Norm (Normal) 12/04/21 00:43 Urine Ketones 1+ (Negative) H 12/04/21 00:43 Urine Blood Neg (Negative) 12/04/21 00:43 Urine Nitrate Negative (Negative) 12/04/21 00:43 Urine Bilirubin 1+ (Negative) H 12/04/21 00:43 Urine Urobilinogen 4+ mg/dL (Negative) H 12/04/21 00:43 Ur Leukocyte Esterase Negative (Negative) 12/04/21 00:43 Urine Opiates Screen Negative ng/mL (Negative) 12/04/21 00:43 Acetaminophen < 5.0 ug/mL (10-30) L 12/03/21 22:22 Ur Barbiturates Screen Negative ng/mL (Negative) 12/04/21 00:43 Ur Phencyclidine Scrn Negative ng/mL (Negative) 12/04/21 00:43 Ur Amphetamines Screen Negative ng/mL (Negative) 05/01/22 00:43 U Benzodiazepines Scrn Positive ng/mL (Negative) H 12/04/21 00:43 Urine Cocaine Screen Negative ng/mL (Negative) 12/04/21 00:43 U Marijuana (THC) Screen Positive ng/mL (Negative) H 12/04/21 00:43 Ethyl Alcohol 291 mg/dL (0-10) H 12/03/21 22:22 Blood Type O Negative 12/03/21 22:22 Rho(D) Type Negative 12/03/21 22:22 Antibody Screen Negative 12/03/21 22:22 Discharge Plan Discharge Patient Disposition: Home Clinical Impression: Alcohol use disorder, severe, dependence, Alcoholic cirrhosis of liver with ascites, Anemia, History of GI bleed Condition: Stable Prescriptions: New Carafate 1 gram tablet 1 g PO TID 28 Days Qty: 84 0RF No Action Linzess 290 mcg capsule 290 mcg PO DAILY 0RF spironolactone 25 mg tablet 25 mg PO DAILY 0RF polyethylene glycol 3350 [Miralax] 17 gram powder in packet 17 g PO DAILY 0RF hydrocodone-acetaminophen 10-325 mg tablet 1 tab PO Q6H PRN0RF albuterol sulfate [ProAir HFA] 90 mcg/actuation HFA aerosol inhaler 2 puff inhalation Q6H PRN0RF Spiriva with HandiHaler 18 mcg capsule, w/inhalation device 1 cap inhalation DAILY 0RF Rx Instructions: puncture 1 cap using device; one dose = 2 inhalations B-100 Complex 100 mg tablet extended release PO 0RF tramadol 50 mg tablet 50 mg PO Q8H PRN (Reason: pain) Qty: 60 0RF furosemide 40 mg tablet 80 mg PO DAILY Qty: 60 11RF pantoprazole 40 mg tablet,delayed release (DR/EC) 40 mg PO DAILY Qty: 90 3RF epinephrine [EpiPen 2-Edmundo] 0.3 mg/0.3 mL auto-injector 0.3 mg IM Q4H PRN (Reason: anaphylaxis) Qty: 2 0RF Discharge Orders: Discharge ED (Routine); Ordered 12/04/21 Ordered By: Reji Kate Referrals: Anders Cortez DO [Primary Care Provider] - 1-3 days Patient Instructions: Gastrointestinal Bleeding (ED), Cirrhosis (ED), Anemia (ED) Activity Restrictions/Additional Instructions: New medications as directed. Call your GI doctor in [place] on Sunday for a follow-up appointment. You may need your blood count checked early next week as well. Abstain from alcohol, as it significantly has thinned your blood, and made you more susceptible to bleeding. Return for significant continued bleeding from the rectum, vomiting blood or coffee-ground type substances, fever, increasing pain, or other concerning symptoms. Coding Level of Care Code ED Track Walker for Chg Fwd Exam Comprehensive
[2021-12-04 00:56] LABS: Add Urine Microscopic? NO; Charge for UA Resulting for Rev
[2021-12-04 01:08] LABS: Amphetamines Screen Urine Negative (Negative); Barbiturates Screen Urine Negative (Negative); Benzodiazepines Screen Urine Positive (Negative); Cocaine Screen Urine Negative (Negative); Opiate Screen Urine Negative (Negative); PCP Screen Urine Negative (Negative); THC Screen Urine Positive (Negative)
[2021-12-04 01:13] LABS: Glucose Urine UA Norm (Normal); Ketones Urine 1+ (Negative); Protein Urine Neg (Negative); Urine Appearance Clear (CLEAR); Urine Color Yellow (Yellow); pH Urine 7 (5-7)
[2021-12-04 01:14] LABS: Bilirubin Urine 1+ (Negative); Blood Urine Neg (Negative); Leukocyte Esterase Urine Negative (Negative); Nitrate Urine Negative (Negative); Urobilinogen Urine 4+ mg/dL (Negative)
[2021-12-04 01:34] VITALS: BP 112/60; PULSE 100; RESP 21; O2SAT 97
[2021-12-04] MEDS: ondansetron 2 mg/ML SDV 2 mL 4 MG IVP (02:24)
[2021-12-04] MEDS: acetaminophen 500 mg Tablet 1000 MG PO (02:24)
[2021-12-04] MEDS: potassium chloride ER 20 mEq Tablet 40 MEQ PO (02:25)
== END 2021-12-04 03:15 | disposition home or self-care (01) ==
PROVIDERS: Emergency Provider Emergency Medicine; PCP Family Medicine
DX: K70.31 Alcoholic cirrhosis of liver with ascites (principal); F10.20 Alcohol dependence, uncomplicated; Y90.8 Blood alcohol level of 240 mg/100 ml or more; D64.9 Anemia, unspecified; K76.0 Fatty (change of) liver, not elsewhere classified; F17.200 Nicotine dependence, unspecified, uncomplicated; Z87.19 Personal history of other diseases of the digestive system; Z79.891 Long term (current) use of opiate analgesic
CPT/HCPCS: 74177; 80053; 80306; 80307; 81003; 83690; 83735; 84703; 85025; 85610; 85730; 86140; 86850; 86900; 96361; 96374; 99284; J2405; J7030; Q9967

== ENCOUNTER 2022-06-20 01:00 | Outpatient (CLI) | payer MEDICAID, SELFPAY | END 2022-06-20 23:00 | disposition home or self-care (01) | LOC: RAD 07-05 09:52 | PROVIDERS: PCP Family Medicine; Visit Provider Nurse Practitioner Family | DX: K70.30 Alcoholic cirrhosis of liver without ascites (principal) | CPT/HCPCS: 80053; 80061; 84443; 85025; 86705; 86706; 86709; 86803; 87340 ==

== ENCOUNTER 2022-07-12 09:40 | Outpatient (CLI) | payer MEDICAID, SELFPAY ==
--- NOTE | 2022-07-12 09:51 | MM_ITS ---
WS: [id number] DIAGNOSTIC BILATERAL DIGITAL BREAST TOMOSYNTHESIS MAMMOGRAPHY WITH CAD Bilateral breast ultrasound, complete. HISTORY: N63.0 - Unspecified lump in unspecified breast, bilateral, multiple palpable nodules as per the patient. COMPARISON: None available. TECHNIQUE: Bilateral craniocaudad, mediolateral oblique, and mediolateral views are submitted with to verna and SHAE. Computer aided detection utilized. Breast composition: There are scattered areas of fibroglandular density. Normal appearance of the melanie asts. No mass or distortion. No suspicious calcification. Bilateral breast ultrasound, complete. Normal fibroglandular appearance throughout each breast. There is a benign lymph node in the RIGHT br east at 12:00. There are no solid or cystic masses. No skin thickening or distortion. Normal LEFT axi llary lymph node. MM/[place] [id number] IMPRESSION: BI-RADS: 2-Benign FOLLOW UP: 1 Year Follow-up
== END 2022-07-12 09:41 | disposition home or self-care (01) ==
PROVIDERS: PCP Family Medicine; Visit Provider Nurse Practitioner Family
DX: N63.10 Unspecified lump in the right breast, unspecified quadrant (principal); N63.20 Unspecified lump in the left breast, unspecified quadrant; R59.1 Generalized enlarged lymph nodes
CPT/HCPCS: 76642; 77062; G0279

== ENCOUNTER 2022-11-03 13:03 | Emergency (ER) | payer MEDICAID, SELFPAY ==
[2022-11-03] VITALS (44 sets, daily range): BP systolic 103–142; BP diastolic 47–75; PULSE 74–97; RESP 14–18; O2SAT 86–100; BMI 31.5
--- NOTE | 2022-11-03 13:21 | CT_ITS ---
WS: [id number] CT ABDOMEN PELVIS TECHNIQUE: Noncontrast CT of the abdomen and pelvis with coronal and sagittal reformatted images. CLINICAL INFORMATION: Abdominal pain COMPARISON: CT December 03, 2021 DLP: 980.[address] scans at [facility] use at least one of these dose optimization techniques: automated e xposure control; mA and/or kV adjustment per patient size (includes targeted exams where dose is matc hed to clinical indication); or iterative reconstruction. FINDINGS: Cirrhotic configuration to the liver. Splenomegaly. Tiny esophageal hiatal hernia. Mild to moderate p erihepatic and perisplenic ascites. Ascites in the lower abdomen and pelvis. Diffuse body wall anasar ca and mesenteric edema. Small to moderate RIGHT pleural effusion. Compressive atelectasis RIGHT lowe r lobe. Noncontrast pancreas appears normal. Prominent lymph nodes in the upper abdomen likely reactive. Sugg estion of upper abdominal varices. Adrenal glands are normal. No hydronephrosis in either kidney. Nor mal caliber abdominal aorta. A few prominent periaortic and retroperitoneal lymph nodes. Reactive lym ph nodes along the mesenteric root with mesenteric edema. Largest lymph node LEFT periaortic lymph no de measures 16 mm. Sigmoid diverticulosis. No evidence of acute diverticulitis. Tiny fat-containing umbilical hernia. Ch ronic bilateral pars defects L5-S1. Slight anterolisthesis L5 on S1. CT/CT abdomen pelvis wo con [id number] IMPRESSION: 1. Progressed sclerotic liver with splenomegaly and evidence of portal venous hypertension. Suggestion of upper abdominal and paraesophageal varices. 2. Mild abdominal ascites with diffuse mesenteric edema. 3. Prominent lymph nodes in the upper abdomen and central mesentery and periao rtic largest measuring 14 mm LEFT periaortic region nonspecific. 4. No hydronephrosis in either kidney. 5. Small to moderate RIGHT pleural effusion with compressive atelectasis RIGHT lower lobe. 6. Chronic bilateral pars defects L5-S1. Slight anterolisthesis L5 on S1.
--- NOTE | 2022-11-03 13:21 | XR_ITS ---
WS: [id number] Exam: XR chest 1V portable [id number] Date/Time of Exam: 11/03/2022 1:21 PM Reason For Exam: dyspnea/cough No priors. There is right lower lobe infiltrate and atelectasis suggesting pneumonia. There is moderate elevatio n of the right diaphragm. The left lung is clear. No pneumothorax. Cardiomediastinal silhouette is un remarkable. Unremarkable bony elements. XR/XR chest 1V portable [id number] IMPRESSION: 1. Right lower lobe pneumonia and atelectasis.
--- NOTE | 2022-11-03 13:23 | ED_ITS ---
Documented by User: Nav Johnson DO 11/04/22 09:47 HPI - GI Bleed General: Chief complaint: GI Bleed Stated complaint: LLQ PAIN, VOMITING BLOOD Time Seen by Provider: 11/03/22 13:20 Source: patient Mode of arrival: EMS History of Present Illness: 42-year-old female presents emergency room vomiti ng bright red blood. She has a history of alcoholic liver cirrhosis and has been binge drinking again she drank heavily last night. She states her last drink was around 10:00 last night which she is still strongly of alcohol. She was seen recently at [place] and discharged home she is reporting bright red blood per rectum as well as hallucinations however when I seen the patient she was able to give fairly detailed history she tells me about 2 to 3 weeks ago she had several esophageal varices banded. MD complaint: gross hematemesis Onset (ago): hour(s) Pain Consistency: constant Severity: moderate Relieving factors: none Exacerbating factors: none Context: history of GI bleed, alcohol abuse and other (Alcoholic liver cirrhosis with esophageal varices) Associated symptoms: Reports abdominal pain, malaise, nausea, poor appetite, vomiting and weakness; Denies chills, easy bruising, epistaxis, fever(s), headache(s), other bleeding, rash or syncope Treatments Prior to Arrival: none Review of Systems Const: Reports: malaise; Denies: fever(s) or chills ENMT: Denies: epistaxis Card: Denies: chest pain or syncope Resp: Denies: dyspnea, productive cough or non-productive cough GI: Reports: abdominal pain, nausea, vomiting, hematemesis and hematochezia : Denies: flank pain, difficulty voiding, dysuria, urinary frequency or urinary urgency Skin/Breast: Reports: pruritus; Denies: rash Neuro: Denies: headache(s) Poncho/Lymph: Denies: easy bruising PFS ED PFSH: Medical History (Updated 11/03/22 @ 19:25 by Reji Kate DO) Alcohol use disorder, severe, dependence Alcoholic cirrhosis of liver with ascites COPD (chronic obstructive pulmonary disease) Esophageal varices H/O drug abuse Surgical History (Updated 11/03/22 @ 13:24 by Nav Johnson DO) History of cholecystectomy History of hemorrhoidectomy History of rectal surgery S/P colonoscopy 2018 S/P D&C (status post dilation and curettage) S/P tubal ligation Family History Mother Angioedema Father Hypertension Grandfather Cancer SKIN Other Diabetes Social History (Updated 10/25/22 @ 10:50 by Vikki Sher LPN) Smoking and tobacco status: current every day smoker cigarettes Alcohol intake: former Former alcohol use details: 09/27 Lives independently: No Household members: friend(s) Housing: House Marital status: Number of children: 2 Pets and animals: Yes Course Vital Signs: Vital signs: Vital Signs Pulse Rate 84 11/03/22 20:41 Respiratory Rate 14 11/03/22 20:41 Blood Pressure 120/69 11/03/22 20:41 Pulse Oximetry 94 11/03/22 20:41 Oxygen Delivery Me thod 11/03/22 20:41 Oxygen Flow Rate 1.5 11/03/22 20:41 MDM - GI Bleed Medical Decision Making 42-year-old female with acute upper GI bleed history of esophageal varices presents acutely intoxicated with history of alcoholic liver cirrhosis. She had recently been to [place] and has had banding done at [facility] in the past. She has been treated with Protonix and octreotide we will get follow-up hemoglobin or making arrangements for transfer to tertiary care facility with available GI for evaluation and possible banding of esophageal varices if needed. Care signed out to Dr. Kate at change of shift. See final notes for diagnosis and disposition. Staff is working on finding available facility at this time. 42-year-old intoxicated female with a history of variceal bleeding. She was checked out to me by the previous physician at shift change. Her vital signs are currently stable. Blood pressure 106/52. Heart rate 90. Saturation 97% on room air she is awake and talking hemoglobin is down to 8.5 from 9.2 earlier in the day. BMP is not remarkable. Her INR is 1.8 which is roughly stable from last November. Her platelet count is 97 which is roughly stable from last year. She has received octreotide, Protonix, and is currently on octreotide drip. We do not have gastroenterology services available at this facility and cannot band esophageal varices. We spoke with the hospital at which she had her banding done which is [facility]. They currently have no beds available for this patient. We did speak with Roxanne Jason in [facility]. They are willing to take the patient in transfer for evaluation and management Lab Data 11/03/22 17:25 11/03/22 13:52 Radiology Impressions Abdomen/Pelvis CT 11/03/22 13:21 IMPRESSION: 1. Progressed sclerotic liver with splenomegaly and evidence of portal venous hypertension. Suggestion of upper abdominal and paraesophageal varices. 2. Mild abdominal ascites with diffuse mesenteric edema. 3. Prominent lymph nodes in the upper abdomen and central mesentery and periaortic largest measuring 14 mm LEFT periaortic region nonspecific. 4. No hydronephrosis in either kidney. 5. Small to moderate RIGHT pleural effusion with compressive atelectasis RIGHT lower lobe. 6. Chronic bilateral pars defects L5-S1. Slight anterolisthesis L5 on S1. Chest X-Ray 11/03/22 13:21 IMPRESSION: 1. Right lower lobe pneumonia and atelectasis. Laboratory Results WBC 7.9 10^3/uL (4.0-10.0) 11/03/22 13:52 RBC 2.95 10^6/uL (4.1-5.3) L 11/03/22 13:52 Hgb 8.5 g/dL (11.5-15.3) L 11/03/22 17:25 Hct 27.2 % (37.0-47.0) L 11/03/22 17:25 MCV 101.0 fl (81-99) H 11/03/22 13:52 MCH 31.2 pg (28.0-34.0) 11/03/22 13:52 MCHC 30.9 g/dL (30.0-36.0) 11/03/22 13:52 RDW 17.2 % (12.1-15.1) H 11/03/22 13:52 Plt Count 97 10^3/cmm (130-400) L 11/03/22 13:52 MPV 10.4 fL (7.4-10.4) 11/03/22 13:52 Neut % (Auto) 63.5 % 11/03/22 13:52 Lymph % (Auto) 22.5 % 11/03/22 13:52 Atlantic % (Auto) 10.1 % 11/03/22 13:52 Eos % (Auto) 2.4 % 11/03/22 13:52 Baso % (Auto) 1.1 % 11/03/22 13:52 Neut # (Auto) 4.99 10^3/uL (1.8-7.7) 11/03/22 13:52 Lymph # (Auto) 1.8 10^3/uL (0.8-4.8) 11/03/22 13:52 [place] # (Auto) 0.8 10^3/uL (0.2-0.9) 11/03/22 13:52 Eos # (Auto) 0.2 10^3/uL (0.0-0.8) 11/03/22 13:52 Baso # (Auto) 0.1 10^3/uL (0.0-0.1) 11/03/22 13:52 Nucleated RBC % (auto) 0 % 11/03/22 13:52 Nucleated RBCs # 0.0 /100WBC 11/03/22 13:52 PT 21.90 SECONDS (12.1-14.9) H 11/03/22 13:52 INR 1.83 (0.8-1.2) H 11/03/22 13:52 APTT 35.4 SECONDS (23.9-36.7) 11/03/22 13:52 Sodium 143 mmol/L (136-145) 11/03/22 13:52 Potassium 4.0 mmol/L (3.5-5.1) 11/03/22 13:52 Chloride 111 mmol/L (98-107) H 11/03/22 13:52 Carbon Dioxide 23 mmol/L (22-29) 11/03/22 13:52 Anion Gap 13.0 (5-19) 11/03/22 13:52 BUN 8 mg/dL (6-20) 11/03/22 13:52 Creatinine 0.4 mg/dL (0.5-0.9) L 11/03/22 13:52 GFR Calculation 176.8 mL/min (90-130) H 11/03/22 13:52 Glucose 85 mg/dL (65-115) 11/03/22 13:52 Calculated Osmolality 294 mOsm/kg (285-295) 11/03/22 13:52 Lactic Acid 2.4 mmol/L (0.5-2.2) H 11/03/22 13:52 Lactic Acid (Sepsis) 2.3 mmol/L (0.5-2.2) H 11/03/22 15:32 Calcium 7.8 mg/dL (8.5-10.5) L 11/03/22 13:52 Magnesium 1.9 mg/dL (1.7-2.3) 11/03/22 13:52 Total Bilirubin 3.1 mg/dL (0.15-1.2) H 11/03/22 13:52 AST 167 U/L (0-32) H 11/03/22 13:52 ALT 41 U/L (0-33) H 11/03/22 13:52 Alkaline Phosphatase 152 U/L (35-105) H 11/03/22 13:52 Total Protein 7.5 g/dL (6.6-8.7) 11/03/22 13:52 Albumin 2.9 g/dL (3.5-5.2) L 11/03/22 13:52 Globulin 4.6 g/dL (1.3-4.6) 11/03/22 13:52 Lipase 25 U/L (13-60) 11/03/22 13:52 Urine Color Dark yellow (Yellow) 11/03/22 13:58 Urine Appearance Hazy (CLEAR) A 11/03/22 13:58 Urine pH 6 (5-7) 11/03/22 13:58 Ur Specific [place] 1.020 (1.005-1.030) 11/03/22 13:58 Urine Protein Neg (Negative) 11/03/22 13:58 Urine Glucose (UA) Norm (Normal) 11/03/22 13:58 Urine Ketones Negative (Negative) 11/03/22 13:58 Urine Blood 2+ (Negative) H 11/03/22 13:58 Urine Nitrate Negative (Negative) 11/03/22 13:58 Urine Bilirubin 1+ (Negative) H 11/03/22 13:58 Urine Urobilinogen 12 mg/dL (Negative) H 11/03/22 13:58 Ur Leukocyte Esterase Negative (Negative) 11/03/22 13:58 Urine RBC 0-4 /hpf (0-2) H 11/03/22 13:58 Urine WBC None /hpf (0-5) 11/03/22 13:58 Ur Squamous Epith Cells 0-4 /hpf (0-5) H 11/03/22 13:58 Amorphous Sediment Not Reportable 11/03/22 13:58 Urine Bacteria 1+ /hpf (NONE) H 11/03/22 13:58 Urine Mucus 1+ /hpf 11/03/22 13:58 Ethyl Alcohol 258 mg/dL (0-10) H 11/03/22 13:52 Blood Type O Negative 11/03/22 14:15 Rho(D) Type Negative 11/03/22 14:15 Antibody Screen Negative 11/03/22 14:15 Discharge Plan Discharge Patient Disposition: Xfer Short-Term Hosp Clinical Impression: Esophageal varices, Acute GI bleeding Condition: Fair Referrals: Anders Cortez DO [Primary Care Provider] - Coding Level of Care Code ED Behavioral Specialist for Chg Fwd Documented by User: Reji Kate DO 11/03/22 19:26 HPI - GI Bleed General: Chief complaint: GI Bleed Stated complaint: LLQ PAIN, VOMITING BLOOD Time Seen by Provider: 11/03/22 13:20 PFSH ED PFSH: Medical History (Updated 11/03/22 @ 19:25 by Reji Kate DO) Alcohol use disorder, severe, dependence Alcoholic cirrhosis of liver with ascites COPD (chronic obstructive pulmonary disease) Esophageal varices H/O drug abuse Surgical History (Updated 11/03/22 @ 13:24 by Nav Johnson DO) History of cholecystectomy History of hemorrhoidectomy History of rectal surgery S/P colonoscopy 2018 S/P D&C (status post dilation and curettage) S/P tubal ligation Family History Mother Angioedema Father Hypertension Grandfather Cancer SKIN Other Diabetes Social History (Updated 10/25/22 @ 10:50 by Vikki Sher LPN) Smoking and tobacco status: current every day smoker cigarettes Alcohol intake: former Former alcohol use details: 09/27 Lives independently: No Household members: friend(s) Housing: House Marital status: Number of children: 2 Pets and animals: Yes Course Vital Signs: Vital signs: Vital Signs Pulse Rate 84 11/03/22 20:41 Respiratory Rate 14 11/03/22 20:41 Blood Pressure 120/69 11/03/22 20:41 Pulse Oximetry 94 11/03/22 20:41 Oxygen Delivery Me thod 11/03/22 20:41 Oxygen Flow Rate 1.5 11/03/22 20:41 MDM - GI Bleed Medical Decision Making 42-year-old intoxicated female with a history of variceal bleeding. She was checked out to me by the previous physician at shift change. Her vital signs are currently stable. Blood pressure 106/52. Heart rate 90. Saturation 97% on room air she is awake and talking hemoglobin is down to 8.5 from 9.2 earlier in the day. BMP is not remarkable. Her INR is 1.8 which is roughly stable from last November. Her platelet count is 97 which is roughly stable from last year. She has received octreotide, Protonix, and is currently on octreotide drip. We do not have gastroenterology services available at this facility and cannot band esophageal varices. We spoke with the hospital at which she had her banding done which is [facility]. They currently have no beds available for this patient. We did speak with Roxanne Gomez in [facility]. They are willing to take the patient in transfer for evaluation and management Lab Data 11/03/22 17:25 11/03/22 13:52 Radiology Impressions Abdomen/Pelvis CT 11/03/22 13:21 IMPRESSION: 1. Progressed sclerotic liver with splenomegaly and evidence of portal venous hypertension. Suggestion of upper abdominal and paraesophageal varices. 2. Mild abdominal ascites with diffuse mesenteric edema. 3. Prominent lymph nodes in the upper abdomen and central mesentery and periaortic largest measuring 14 mm LEFT periaortic region nonspecific. 4. No hydronephrosis in either kidney. 5. Small to moderate RIGHT pleural effusion with compressive atelectasis RIGHT lower lobe. 6. Chronic bilateral pars defects L5-S1. Slight anterolisthesis L5 on S1. Chest X-Ray 11/03/22 13:21 IMPRESSION: 1. Right lower lobe pneumonia and atelectasis. Laboratory Results WBC 7.9 10^3/uL (4.0-10.0) 11/03/22 13:52 RBC 2.95 10^6/uL (4.1-5.3) L 11/03/22 13:52 Hgb 8.5 g/dL (11.5-15.3) L 11/03/22 17:25 Hct 27.2 % (37.0-47.0) L 11/03/22 17:25 MCV 101.0 fl (81-99) H 11/03/22 13:52 MCH 31.2 pg (28.0-34.0) 11/03/22 13:52 MCHC 30.9 g/dL (30.0-36.0) 11/03/22 13:52 RDW 17.2 % (12.1-15.1) H 11/03/22 13:52 Plt Count 97 10^3/cmm (130-400) L 11/03/22 13:52 MPV 10.4 fL (7.4-10.4) 11/03/22 13:52 Neut % (Auto) 63.5 % 11/03/22 13:52 Lymph % (Auto) 22.5 % 11/03/22 13:52 Atlantic % (Auto) 10.1 % 11/03/22 13:52 Eos % (Auto) 2.4 % 11/03/22 13:52 Baso % (Auto) 1.1 % 11/03/22 13:52 Neut # (Auto) 4.99 10^3/uL (1.8-7.7) 11/03/22 13:52 Lymph # (Auto) 1.8 10^3/uL (0.8-4.8) 11/03/22 13:52 [place] # (Auto) 0.8 10^3/uL (0.2-0.9) 11/03/22 13:52 Eos # (Auto) 0.2 10^3/uL (0.0-0.8) 11/03/22 13:52 Baso # (Auto) 0.1 10^3/uL (0.0-0.1) 11/03/22 13:52 Nucleated RBC % (auto) 0 % 11/03/22 13:52 Nucleated RBCs # 0.0 /100WBC 11/03/22 13:52 PT 21.90 SECONDS (12.1-14.9) H 11/03/22 13:52 INR 1.83 (0.8-1.2) H 11/03/22 13:52 APTT 35.4 SECONDS (23.9-36.7) 11/03/22 13:52 Sodium 143 mmol/L (136-145) 11/03/22 13:52 Potassium 4.0 mmol/L (3.5-5.1) 11/03/22 13:52 Chloride 111 mmol/L (98-107) H 11/03/22 13:52 Carbon Dioxide 23 mmol/L (22-29) 11/03/22 13:52 Anion Gap 13.0 (5-19) 11/03/22 13:52 BUN 8 mg/dL (6-20) 11/03/22 13:52 Creatinine 0.4 mg/dL (0.5-0.9) L 11/03/22 13:52 GFR Calculation 176.8 mL/min (90-130) H 11/03/22 13:52 Glucose 85 mg/dL (65-115) 11/03/22 13:52 Calculated Osmolality 294 mOsm/kg (285-295) 11/03/22 13:52 Lactic Acid 2.4 mmol/L (0.5-2.2) H 11/03/22 13:52 Lactic Acid (Sepsis) 2.3 mmol/L (0.5-2.2) H 11/03/22 15:32 Calcium 7.8 mg/dL (8.5-10.5) L 11/03/22 13:52 Magnesium 1.9 mg/dL (1.7-2.3) 11/03/22 13:52 Total Bilirubin 3.1 mg/dL (0.15-1.2) H 11/03/22 13:52 AST 167 U/L (0-32) H 11/03/22 13:52 ALT 41 U/L (0-33) H 11/03/22 13:52 Alkaline Phosphatase 152 U/L (35-105) H 11/03/22 13:52 Total Protein 7.5 g/dL (6.6-8.7) 11/03/22 13:52 Albumin 2.9 g/dL (3.5-5.2) L 11/03/22 13:52 Globulin 4.6 g/dL (1.3-4.6) 11/03/22 13:52 Lipase 25 U/L (13-60) 11/03/22 13:52 Urine Color Dark yellow (Yellow) 11/03/22 13:58 Urine Appearance Hazy (CLEAR) A 11/03/22 13:58 Urine pH 6 (5-7) 11/03/22 13:58 Ur Specific [place] 1.020 (1.005-1.030) 11/03/22 13:58 Urine Protein Neg (Negative) 11/03/22 13:58 Urine Glucose (UA) Norm (Normal) 11/03/22 13:58 Urine Ketones Negative (Negative) 11/03/22 13:58 Urine Blood 2+ (Negative) H 11/03/22 13:58 Urine Nitrate Negative (Negative) 11/03/22 13:58 Urine Bilirubin 1+ (Negative) H 11/03/22 13:58 Urine Urobilinogen 12 mg/dL (Negative) H 11/03/22 13:58 Ur Leukocyte Esterase Negative (Negative) 11/03/22 13:58 Urine RBC 0-4 /hpf (0-2) H 11/03/22 13:58 Urine WBC None /hpf (0-5) 11/03/22 13:58 Ur Squamous Epith Cells 0-4 /hpf (0-5) H 11/03/22 13:58 Amorphous Sediment Not Reportable 11/03/22 13:58 Urine Bacteria 1+ /hpf (NONE) H 11/03/22 13:58 Urine Mucus 1+ /hpf 11/03/22 13:58 Ethyl Alcohol 258 mg/dL (0-10) H 11/03/22 13:52 Blood Type O Negative 11/03/22 14:15 Rho(D) Type Negative 11/03/22 14:15 Antibody Screen Negative 11/03/22 14:15 Discharge Plan Discharge Patient Disposition: Xfer Short-Term Hosp Clinical Impression: Esophageal varices, Acute GI bleeding Condition: Fair Referrals: Anders Cortez DO [Primary Care Provider] - Coding Level of Care Code ED Behavioral Specialist for Chg Laura
[2022-11-03] MEDS: ondansetron 2 mg/ML SDV 2 mL 4 MG IVP ×2 (13:46→20:37)
[2022-11-03] MEDS: promethazine 25 mg/mL SDV 1 mL IM (13:46)
[2022-11-03] MEDS: pantoprazole 40 mg SDV 80 MG IVP (13:46)
[2022-11-03] MEDS: sodium chloride 0.9% 1,000 ML 999 ML IV (13:52)
[2022-11-03] MEDS: octreotide 100 mcg/mL SDV 50 MCG IVP (14:07)
--- NOTE | 2022-11-03 14:09 | ECG_ITS ---
[facility] Test Date: 2022-11-03 Pat Name: Teodora Stiles Department: Room: Gender: Female Sports Medicine Coordinator: : 1980 Requested By: Nav Duenas Order Number: [id number] Dave MD: José Miguel Salinas M.D. Measurements Intervals [place] Rate: 86 P: 72 WI: 134 QRS: 11 QRSD: 81 T: -37 QT: 379 QTc: 454 Interpretive Statements SINUS RHYTHM LOW QRS VOLTAGE IN PRECORDIAL LEADS [QRS DEFLECTION < 1.0 mV IN CHEST LEADS] MODERATE ST DEPRESSION [0.05+ mV ST DEPRESSION] No previous ECG available for comparison Electronically Signed On 11-03-2022 15:52:48 CDT by José Miguel Salinas M.D. [email or web address]
[2022-11-03 14:16] LABS: Basophils # 0.1 10^3/uL (0.0-0.1); Basophils % 1.1 %; Eosinophils # 0.2 10^3/uL (0.0-0.8); Eosinophils % 2.4 %; Hematocrit 29.8 % (37.0-47.0); Hemoglobin 9.2 g/dL (11.5-15.3); Lymphocytes # 1.8 10^3/uL (0.8-4.8); Lymphocytes % 22.5 %; Mean Corpuscular HGB Conc 30.9 g/dL (30.0-36.0); Mean Corpuscular Hemoglobin 31.2 pg (28.0-34.0); Mean Platelet Volume 10.4 fL (7.4-10.4); Monocytes # 0.8 10^3/uL (0.2-0.9); Monocytes % 10.1 %; Neutrophils # 4.99 10^3/uL (1.8-7.7); Neutrophils % 63.5 %; Nucleated Red Blood Cells % 0 %; Platelet Count 97 10^3/cmm (130-400); Red Blood Count 2.95 10^6/uL (4.1-5.3); Red Cell Distribution Width 17.2 % (12.1-15.1); White Blood Count 7.9 10^3/uL (4.0-10.0)
[2022-11-03] MEDS: diphenhydrAMINE 50 mg/mL SDV 1mL 25 MG IVP (14:19)
[2022-11-03] MEDS: LORazepam 2 mg/mL INJ 1 mL IVP (14:19)
[2022-11-03 14:30] LABS: INR 1.83 (0.8-1.2)
[2022-11-03 14:31] LABS: Partial Thromboplastin Time 35.4 SECONDS (23.9-36.7)
[2022-11-03] MEDS: piperacillin-tazobactam 3.375 GM in sodium chloride 0.9% (plus) 50 ML IV (14:38)
[2022-11-03 14:40] LABS: Alanine Aminotransferase 41 U/L (0-33); Albumin Level 2.9 g/dL (3.5-5.2); Alcohol Level 258 mg/dL (0-10); Alkaline Phosphatase 152 U/L (35-105); Aspartate Amino Transferase 167 U/L (0-32); Blood Urea Nitrogen 8 mg/dL (6-20); Calcium 7.8 mg/dL (8.5-10.5); Carbon Dioxide 23 mmol/L (22-29); Chloride 111 mmol/L (98-107); Globulin 4.6 g/dL (1.3-4.6); Glomerular Filtration Rate 176.8 mL/min (90-130); Glucose 85 mg/dL (65-115); Lactic Sepsis W/Reflex 2.4 mmol/L (0.5-2.2); Lipase 25 U/L (13-60); Magnesium 1.9 mg/dL (1.7-2.3); Osmolality Calculated 294 mOsm/kg (285-295); Sodium 143 mmol/L (136-145); Total Bilirubin 3.1 mg/dL (0.15-1.2); Total Protein 7.5 g/dL (6.6-8.7)
[2022-11-03 15:12] LABS: Urine Appearance Hazy (CLEAR); Urine Color Dark Yellow (Yellow); pH Urine 6 (5-7)
[2022-11-03 15:13] LABS: Add Urine Microscopic? YES; Bilirubin Urine 1+ (Negative); Blood Urine 2+ (Negative); Glucose Urine UA Norm (Normal); Ketones Urine Negative (Negative); Leukocyte Esterase Urine Negative (Negative); Nitrate Urine Negative (Negative); Protein Urine Neg (Negative); Urobilinogen Urine 12 mg/dL (Negative)
[2022-11-03 15:14] LABS: Bacteria Urine 1+ /hpf; Mucus Urine 1+ /hpf; RBC Urine 0-4 /hpf (0-2); Squamous Epithelial Cell Urine 0-4 /hpf (0-5)
[2022-11-03 15:56] LABS: Reflex Lactate Order REFLEX LACTIC ORDERD
[2022-11-03 16:34] LABS: Lactic Acid level (Lactate) 2.3 mmol/L (0.5-2.2)
[2022-11-03 17:30] LABS: Hematocrit 27.2 % (37.0-47.0); Hemoglobin 8.5 g/dL (11.5-15.3)
[2022-11-03] MEDS: octreotide 500 MCG in sodium chloride 0.9% (100 ml) 100 ML 10.1 MCG IV (19:25)
[2022-11-03] MEDS: fentaNYL 50 mcg/mL INJ 2mL 75 MCG IVP (20:38)
--- NOTE | 2022-11-03 21:20 | PC.NURSE ---
Patient left with the Octreotide running.
== END 2022-11-03 21:00 | disposition short-term general hospital (02) ==
PROVIDERS: Family Medicine; Emergency Provider Emergency Medicine; PCP Family Medicine
DX: I85.00 Esophageal varices without bleeding (principal); K92.2 Gastrointestinal hemorrhage, unspecified; J44.9 Chronic obstructive pulmonary disease, unspecified; F17.210 Nicotine dependence, cigarettes, uncomplicated
CPT/HCPCS: 36415; 71045; 74176; 80053; 80307; 81001; 83605; 83690; 83735; 85014; 85018; 85025; 85610; 85730; 86850; 86900; 87040; 93005; 96365; 96366; 96372; 96375; 96376; 99285; C9113; J1200; J2060; J2354; J2405; J2543; J2550; J3010; J7030

== ENCOUNTER 2023-08-06 15:03 | Observation (INO) | payer MEDICAID, SELFPAY ==
[2023-08-06 15:10] VITALS: BP 137/80; PULSE 110; RESP 18; TEMP 36.8; O2SAT 97; BMI 31.8
--- NOTE | 2023-08-06 15:10 | ED_ITS ---
HPI - General Adult 2 General: Chief complaint: Psychiatric Symptoms Stated complaint: hallucinations Time Seen by Provider: 08/06/23 15:10 Source: patient Mode of arrival: EMS History of Present Illness: 42-year-old female presents to the emerg ency room with complaint of altered mental status was auditory and visual hallucinations. She recently had a prolonged hospitalization at [facility] after a postop infection in her back. She was that antibiotic he tells me she is done with them now she was on Klonopin while she was at [facility] and took it for 2 days after being discharged and stopped because of patient's these have persisted. She has a history of alcohol abuse but states she has only had 1 drink since she was released from [facility]. She has been on lactulose in the past but is only been taking it intermittently recently. She denies fever sweats or chills. She complains of blood in her urine coughing up blood vomiting blood blood in her stools and blood from her teeth. She also reports that sharp rash on her upper chest Onset (ago): unknown Relieving factors: none Exacerbating factors: none Associated symptoms: Reports confusion; Deny chest pain, cough, diaphoresis, decreased appetite, dyspnea, fevers/chills, headache(s), malaise, nausea, rash, palpitations, seizures, short of breath, syncope, vomiting, weakness or other Treatments prior to arrival: none Review of Systems 2 Const: Denies: fever(s), chills, malaise or diaphoresis Card: Denies: chest pain, palpitations or syncope Resp: Denies: dyspnea GI: Denies: abdominal pain, nausea or vomiting : Denies: dysuria, urinary frequency or urinary urgency Musc: Denies: neck pain or back pain Skin/Breast: Denies: rash Neuro: Reports: confusion; Denies: headache(s) PFSH ED 2 PFSH: Medical History Esophageal varices H/O drug abuse COPD (chronic obstructive pulmonary disease) Alcoholic cirrhosis of liver with ascites Alcohol use disorder, severe, dependence Surgical History S/P tubal ligation S/P colonoscopy 2018 S/P D&C (status post dilation and curettage) History of hemorrhoidectomy History of rectal surgery History of cholecystectomy Family History Mother Angioedema Father Hypertension Grandfather Cancer SKIN Other Diabetes Social History Smoking and tobacco/nicotine status: current every day tobacco/nicotine user cigarettes Alcohol intake: former Former alcohol use details: 09/27 Substance/Drug Use: former Lives independently: No Household members: friend(s) Housing: House Marital status: Number of children: 2 Pets and animals: Yes Physical Exam 2 Const: GENERAL APPEARANCE: cooperative and comfortable O RIENTATION/CONSCIOUSNESS: Yes awake HENMT: COMMON NORMALS: normocephalic, atraumatic and hearing grossly normal bilaterally HEAD & SCALP: normocephalic and atraumatic Resp: COMMON NORMALS: normal respiratory effort, No retractions, No use of accessory muscles and clear to auscultation bilaterally AUSCULTATION: clear to auscultation bilaterally Cardio: COMMON NORMALS: regular rate, regular rhythm and No murmurs present (Cardio) RATE: regular rate RHYTHM: regular rhythm GI: COMMON NORMALS: Soft to palpation and No hepatosplenomegaly present A USCULTATION: Yes normoactive bowel sounds PALPATION: Yes Soft to palpation, No Tenderness to palpation present (GI), No Guarding due to palpation present (GI) and Yes No hepatosplenomegaly present Back/Pelvis: OTHER: Examination of the dehisced wound in the lumbar region. No induration no drainage. There is a granulating wound healing by secondary intent approximately 2-3 inches by half inch or less in diameter. Does not appear to be acutely infected. Extremity: COMMON NORMALS: normal to inspection, capillary refill normal, no clubbing, cyanosis or edema, no calf tenderness and no pedal edema Skin: NARRATIVE SKIN EXAM: Slightly raised erythematous rash over the upper chest and upper extremities. No vesicles no pustules no active drainage Course 2 Vital Signs: Vital signs: Vital Signs Temperature 98.2 F 08/06/23 15:10 Pulse Rate 105 H 08/06/23 15:15 Respiratory Rate 18 08/06/23 15:15 Blood Pressure 137/80 08/06/23 15:15 Pulse Oximetry 95 08/06/23 15:15 Oxygen Delivery Me thod Room Air 08/06/23 15:15 MDM - General Adult Medical Decision Making Labs and imaging reviewed. Acute hepatic encephalopathy with acute liver failure. Discussed with hospitalist will admit for acute hepatic encephalopathy. Her wound in her back does not appear to be acutely infected at this time. Medical Records I reviewed the patient's medical records. Lab Data I reviewed the patient's lab results. 08/06/23 15:30 08/06/23 15:30 Laboratory Results WBC 3.41 10^3/uL (3.29-11.43) 08/06/23 15:30 RBC 3.53 10^6/uL (3.85-5.65) L 08/06/23 15:30 Hgb 10.20 g/dL (11.27-16.99) L 08/06/23 15:30 Hct 30.9 % (36-47) L 08/06/23 15:30 MCV 87.5 fl (85-98) 08/06/23 15:30 MCH 28.9 pg (27-33) 08/06/23 15:30 MCHC 33.0 g/dL (30-55) 08/06/23 15:30 RDW 18.0 % (12.1-15.1) H 08/06/23 15:30 Plt Count 51 10^3/cmm (157-399) L 08/06/23 15:30 MPV 10.0 fL (7.4-10.4) 08/06/23 15:30 Neut % (Auto) 69.5 % 08/06/23 15:30 Lymph % (Auto) 16.4 % 08/06/23 15:30 Phelps % (Auto) 12.6 % 08/06/23 15:30 Eos % (Auto) 0.9 % 08/06/23 15:30 Baso % (Auto) 0.6 % 08/06/23 15:30 Neut # (Auto) 2.37 10^3/uL (1.8-7.7) 08/06/23 15:30 Lymph # (Auto) 0.6 10^3/uL (0.8-4.8) L 08/06/23 15:30 Phelps # (Auto) 0.4 10^3/uL (0.2-0.9) 08/06/23 15:30 Eos # (Auto) 0.0 10^3/uL (0.0-0.8) 08/06/23 15:30 Baso # (Auto) 0.0 10^3/uL (0.0-0.1) 08/06/23 15:30 Nucleated RBC % (auto) 0 % 08/06/23 15:30 Nucleated RBCs # 0.0 /100WBC 08/06/23 15:30 PT 25.50 SECONDS (12.1-14.9) H 08/06/23 15:30 INR 2.23 (0.8-1.2) H 08/06/23 15:30 APTT 39.8 SECONDS (23.9-36.7) H 08/06/23 15:30 Sodium 135 mmol/L (136-145) L 08/06/23 15:30 Potassium 3.4 mmol/L (3.5-5.1) L 08/06/23 15:30 Chloride 102 mmol/L (98-107) 08/06/23 15:30 Carbon Dioxide 23 mmol/L (22-29) 08/06/23 15:30 Anion Gap 13.4 (5-19) 08/06/23 15:30 BUN 7 mg/dL (6-20) 08/06/23 15:30 Creatinine 0.4 mg/dL (0.5-0.9) L 08/06/23 15:30 GFR Calculation 176.8 mL/min (90-130) H 08/06/23 15:30 Glucose 82 mg/dL (65-115) 08/06/23 15:30 Calculated Osmolality 277 mOsm/kg (285-295) L 08/06/23 15:30 Calcium 7.8 mg/dL (8.5-10.5) L 08/06/23 15:30 Total Bilirubin 4.2 mg/dL (0.15-1.2) H 08/06/23 15:30 AST 186 U/L (0-32) H 08/06/23 15:30 ALT 59 U/L (0-33) H 08/06/23 15:30 Alkaline Phosphatase 213 U/L (35-105) H 08/06/23 15:30 Ammonia 55 umol/L (11-51) H 08/06/23 15:30 Total Protein 7.4 g/dL (6.6-8.7) 08/06/23 15:30 Albumin 2.7 g/dL (3.5-5.2) L 08/06/23 15:30 Globulin 4.7 g/dL (1.3-4.6) H 08/06/23 15:30 Urine Color Yellow (Yellow) 08/06/23 15:49 Urine Appearance Clear (CLEAR) 08/06/23 15:49 Urine pH 7 (5-7) 08/06/23 15:49 Ur Specific [place] 1.010 (1.005-1.030) 08/06/23 15:49 Urine Protein Trace (Negative) 08/06/23 15:49 Urine Glucose (UA) Norm (Normal) 08/06/23 15:49 Urine Ketones 1+ (Negative) H 08/06/23 15:49 Urine Blood 2+ (Negative) H 08/06/23 15:49 Urine Nitrate Negative (Negative) 08/06/23 15:49 Urine Bilirubin 1+ (Negative) H 08/06/23 15:49 Urine Urobilinogen 4 mg/dL (Negative) H 08/06/23 15:49 Ur Leukocyte Esterase Trace (Negative) H 08/06/23 15:49 Urine RBC 0-4 /hpf (0-2) H 08/06/23 15:49 Urine WBC 0-4 /hpf (0-5) H 08/06/23 15:49 Ur Squamous Epith Cells 0-4 /hpf (0-5) H 08/06/23 15:49 Amorphous Sediment Not Reportable 08/06/23 15:49 Urine Bacteria Trace /hpf (NONE) 08/06/23 15:49 Urine Mucus Trace /hpf 08/06/23 15:49 Ethyl Alcohol < 10 mg/dL (0-10) 08/06/23 15:30 All radiology interpretation(s) finalized by discharge Discharge Plan Discharge Patient Disposition: Admitted As Inpatient Clinical Impression: Alcoholic cirrhosis, Acute hepatic encephalopathy Condition: Stable Prescriptions: No Action B-100 Complex 100 mg tablet extended release 1 tab PO DAILY pantoprazole 40 mg tablet,delayed release (DR/EC) 40 mg PO DAILY pyridoxine (vitamin B6) 100 mg tablet 100 mg PO DAILY gabapentin 300 mg capsule 300 mg PO TID lactulose [Constulose] 10 gram/15 mL solution 10 g PO BID PRN Spiriva with HandiHaler 18 mcg capsule, w/inhalation device 1 cap inhalation DAILY Qty: 30 0RF Rx Instructions: puncture 1 cap using device; one dose = 2 inhalations furosemide 40 mg tablet 80 mg PO DAILY Qty: 10 0RF Rx Instructions: Must have appointment for refills. ProAir HFA 90 mcg/actuation HFA aerosol inhaler 2 puff inhalation Q6H PRN (Reason: Shortness Of Breath Or Wheezing) Qty: 8.5 5RF ondansetron 8 mg tablet,disintegrating 8 mg PO Q8H PRN (Reason: nausea and vomiting) Qty: 30 0RF epinephrine [EpiPen 2-Edmundo] 0.3 mg/0.3 mL auto-injector 0.3 mg IM Q4H PRN (Reason: anaphylaxis) Qty: 2 0RF spironolactone 50 mg tablet 50 mg PO DAILY Qty: 90 3RF nadolol 20 mg tablet 40 mg PO DAILY Referrals: Anders Cortez DO [Primary Care Provider] - Coding Level of Care Code ED [employer] Teacher for Con Sanchez
[2023-08-06 15:15] VITALS: BP 137/80; PULSE 105; RESP 18; O2SAT 95
--- NOTE | 2023-08-06 15:18 | ECG_ITS ---
[facility] Test Date: 2023-08-06 Pat Name: Teodora Stiles Department: Room: Gender: Female Supervisor Soldering: : 1980 Requested By: Nav Duenas Order Number: [id number] Dave MD: José Miguel Salinas M.D. Measurements Intervals [place] Rate: 100 P: 60 AK: 142 QRS: 28 QRSD: 94 T: 55 QT: 372 QTc: 481 Interpretive Statements SINUS TACHYCARDIA Compared to ECG 11/03/2022 14:09:51 Sinus rhythm no longer present ST (T wave) deviation no longer present Electronically Signed On 08-06-2023 15:19:48 SOCIAL STUDIES TEACHER by José Miguel Salinas M.D. [email or web address]
[2023-08-06 15:40] LABS: Basophils % 0.6 %; Eosinophils % 0.9 %; Hematocrit 30.9 % (36-47); Lymphocytes # 0.6 10^3/uL (0.8-4.8); Lymphocytes % 16.4 %; Mean Corpuscular Hemoglobin 28.9 pg (27-33); Mean Corpuscular Volume 87.5 fl (85-98); Monocytes # 0.4 10^3/uL (0.2-0.9); Monocytes % 12.6 %; Neutrophils # 2.37 10^3/uL (1.8-7.7); Neutrophils % 69.5 %; Nucleated Red Blood Cells % 0 %; Platelet Count 51 10^3/cmm (157-399); Red Blood Count 3.53 10^6/uL (3.85-5.65); White Blood Count 3.41 10^3/uL (3.29-11.43)
[2023-08-06 15:49] LABS: INR 2.23 (0.8-1.2)
[2023-08-06 15:50] LABS: Partial Thromboplastin Time 39.8 SECONDS (23.9-36.7)
[2023-08-06 15:57] LABS: Alanine Aminotransferase 59 U/L (0-33); Albumin Level 2.7 g/dL (3.5-5.2); Alcohol Level < 10 mg/dL (0-10); Alkaline Phosphatase 213 U/L (35-105); Anion Gap 13.4 (5-19); Aspartate Amino Transferase 186 U/L (0-32); Blood Urea Nitrogen 7 mg/dL (6-20); Calcium 7.8 mg/dL (8.5-10.5); Carbon Dioxide 23 mmol/L (22-29); Chloride 102 mmol/L (98-107); Globulin 4.7 g/dL (1.3-4.6); Glomerular Filtration Rate 176.8 mL/min (90-130); Glucose 82 mg/dL (65-115); Osmolality Calculated 277 mOsm/kg (285-295); Potassium 3.4 mmol/L (3.5-5.1); Sodium 135 mmol/L (136-145); Total Bilirubin 4.2 mg/dL (0.15-1.2); Total Protein 7.4 g/dL (6.6-8.7)
[2023-08-06 15:58] LABS: Ammonia 55 umol/L (11-51)
[2023-08-06 16:07] LABS: Urine Color Yellow (Yellow)
[2023-08-06 16:08] LABS: Add Urine Microscopic? YES; Bacteria Urine TRACE /hpf; Bilirubin Urine 1+ (Negative); Blood Urine 2+ (Negative); Glucose Urine UA Norm (Normal); Ketones Urine 1+ (Negative); Leukocyte Esterase Urine Trace (Negative); Mucus Urine TRACE /hpf; Nitrate Urine Negative (Negative); Protein Urine Trace (Negative); RBC Urine 0-4 /hpf (0-2); Squamous Epithelial Cell Urine 0-4 /hpf (0-5); Urine Appearance Clear (CLEAR); Urobilinogen Urine 4 mg/dL (Negative); WBC Urine 0-4 /hpf (0-5); pH Urine 7 (5-7)
[2023-08-06 16:09] LABS: Add Urine Culture? No
--- NOTE | 2023-08-06 16:32 | XRR_ITS ---
PROCEDURE INFORMATION: Exam: XR Chest Exam date and time: 08/06/2023 4:37 PM Age: 42 years old Clinical indication: Other: Hallucinations; Prior surgery; Surgery date: 1-6 months; Surgery type: L. Spine; Additional info: Dyspnea/cough TECHNIQUE: Imaging protocol: Radiologic exam of the chest. Views: 1 view. COMPARISON: CR XR chest 1V portable [id number] 11/03/2022 1:39 PM FINDINGS: Lungs: Unremarkable. No consolidation. Pleural spaces: Unremarkable. No pleural effusion. No pneumothorax. Heart/Mediastinum: Unremarkable. No cardiomegaly. Bones/joints: Posterior spinal fusion hardware noted within the lumbar spine. Visualized osseous structures are intact. XR/XR chest 1V portable [id number] IMPRESSION: No acute findings.
--- NOTE | 2023-08-06 17:43 | P.HP_ITS ---
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 Patient is stating that she has been experiencing hallucination, myoclonus related activity, confusion and poor attention span. She has not noticed any seizure related activity. No active chest pain shortness of breath or fever. Complaining of back pain at the time of evaluation, at the time of my evaluation she is awake and alert no active signs of encephalitis or meningitis she was asking for oxycodone for her back pain. She has a known history of alcohol-related liver cirrhosis, he has undergone esophageal variceal banding as well She has portal hypertension with liver cirrhosis on nadolol spironolactone and Lasix Review of Systems 2 Const: Denies: fever(s) Eyes: Denies: change in vision ENMT: Denies: throat pain Card: Denies: chest pain Resp: Denies: dyspnea GI: Denies: abdominal pain : Denies: flank pain Musc: Reports: back pain Skin/Breast: Reports: rash Neuro: Reports: dizziness and confusion; Denies: headache(s) or frequent falls Medications/Allergies Home Medications Medication Instructions Recorded Confirmed Last Taken Type vit B complex 100 combo no.2 100 1 tab PO DAILY 10/24/21 01/09/23 Unknown History mg tablet,extended release (B-100 Complex ER) nadolol 20 mg tablet 40 mg PO DAILY 11/03/22 01/09/23 Unknown History albuterol sulfate 90 mcg/actuation 2 puff inhalation Q6H PRN 11/09/22 01/09/23 Unknown Rx aerosol inhaler (ProAir HFA) Shortness Of Breath Or Wheezing #8.5 grams gabapentin 300 mg capsule 300 mg PO TID 11/15/22 01/09/23 Unknown History lactulose 10 gram/15 mL oral 10 g PO BID PRN 11/15/22 01/09/23 Unknown History solution (Constulose) pantoprazole 40 mg tablet,delayed 40 mg PO DAILY 11/15/22 01/09/23 Unknown History release pyridoxine (vitamin B6) 100 mg 100 mg PO DAILY 11/15/22 01/09/23 Unknown History tablet ondansetron 8 mg disintegrating 8 mg PO Q8H PRN nausea and 11/24/22 01/09/23 Unknown Rx tablet vomiting #30 tabs epinephrine 0.3 mg/0.3 mL 0.3 mg (0.3 mL) IM Q4H PRN 02/02/23 Unknown Rx injection, auto-injector (EpiPen anaphylaxis #2 ea 2-Edmundo) spironolactone 50 mg tablet 50 mg PO DAILY #90 tabs 05/24/23 Unknown Rx furosemide 40 mg tablet 80 mg (2 x 40 mg) PO DAILY #10 tabs 07/20/23 07/20/23 Unknown Rx tiotropium bromide 18 mcg capsule 1 cap inhalation DAILY #30 07/20/23 07/20/23 Unknown Rx with inhalation device (Spiriva inhalations with HandiHaler) Allergies Allergy/AdvReac Type Severity Reaction Status Date / Time hydroxyzine [From Vistaril] Allergy Intermediate swelling Verified 08/06/23 15:14 of the mouth linaclotide [From Linzess] Allergy Intermediate ADR-Diarrhe Verified 08/06/23 15:14 a codeine Allergy ALGY-Difficulty Verified 08/06/23 15:14 Breathing prednisone Allergy ALGY-Swell Verified 08/06/23 15:14 Lip/Tongue/Throat morphine AdvReac ADR-Itching Verified 08/06/23 15:14 PFSH Acute 2 PFSH: Medical History Esophageal varices H/O drug abuse COPD (chronic obstructive pulmonary disease) Alcoholic cirrhosis of liver with ascites Alcohol use disorder, severe, dependence Surgical History S/P tubal ligation S/P colonoscopy 2018 S/P D&C (status post dilation and curettage) History of hemorrhoidectomy History of rectal surgery History of cholecystectomy Family History Mother Angioedema Father Hypertension Grandfather Cancer SKIN Other Diabetes Social History Smoking and tobacco/nicotine status: current every day tobacco/nicotine user cigarettes Alcohol intake: former Former alcohol use details: 09/27 Substance/Drug Use: former Lives independently: No Household members: friend(s) Housing: House Marital status: Number of children: 2 Pets and animals: Yes Vitals/I&O/Wt Last Vital Signs Temp 98.2 F 08/06/23 15:10 Pulse 105 H 08/06/23 15:15 Resp 18 08/06/23 15:15 BP 137/80 08/06/23 15:15 Pulse Ox 95 08/06/23 15:15 O2 Del Method Room Air 08/06/23 15:15 Weight last 48 hrs Weight 81.647 kg Physical Exam 2 Narrative: Awake and alert No sign meningitis Nonfocal neuroexam GCS 15 Back was examined, nontender on palpation no active drainage from her wound, mild blood tinged drainage noted around the wound Awake and alert GCS 15 S1, S2 Currently on room air Rash on the face seems to be getting better Data 08/06/23 15:30 08/06/23 15:30 A&P Assessment and plan (1) Bipolar 1 disorder: (2) Alcohol use disorder, severe, dependence: (3) Alcohol withdrawal: (4) Alcoholic cirrhosis: (5) Alcoholic cirrhosis of liver with ascites: (6) Chronic constipation: (7) Back pain with history of spinal surgery: Plan Encephalopathy most likely related to alcohol abuse Concern for Warnicke's encephalopathy and K[place]off Patient endorsing visual hallucination, cognitive impairment, poor attention span, GCS 15 Nonfocal neuroexam No sign epilepsy meningitis or encephalitis Recently had finished long course of IV antibiotics for her MRSA osteomyelitis, she is seeing orthopedic surgeon at another hospital She may need wound care follow-up at discharge stating that her aunt is taking care of daily dressing changes at home No recent fever She was put on doxycycline p.o. regimen after finishing IV antibiotics, she seemed to develop rash around her face, she is afebrile, no significant leukocytosis or eosinophilia, No signs of UTI Hepatic encephalopathy mild grade continue lactulose and rifaximin in the hospital, not sure if patient would be able to afford rifaximin outpatient She has known history of alcohol-related liver cirrhosis with ascites I will continue spironolactone Lasix, hold nadolol for now History of esophageal varices Full code Cardiac diet Back pain: Continue oxycodone Attestations 2 Medical Necessity Statement*: Anticipating discharge within 40 hours Diagnoses Bipolar 1 disorder F31.9 Alcohol use disorder, severe, dependence F10.20 Alcohol withdrawal F10.239 Alcoholic cirrhosis K70.30 Alcoholic cirrhosis of liver with ascites K70.31 Chronic constipation K59.09 Back pain with history of spinal surgery M54.9; Z98.890
[2023-08-06 18:06] VITALS: BP 143/75; PULSE 108; RESP 18; O2SAT 98
[2023-08-06 18:28] VITALS: BP 143/75; PULSE 103; RESP 18; O2SAT 98
[2023-08-06 18:48] VITALS: BMI 31.8
[2023-08-06 19:22] VITALS: BP 122/86; PULSE 106; RESP 18; TEMP 36.6; O2SAT 96
[2023-08-06 19:32] LABS: Thyroid Stimulating Hormone 1.11 uIU/mL (0.27-4.20)
[2023-08-06 19:33] LABS: Vitamin B12 > 2000 pg/mL (232-1245)
[2023-08-06] MEDS: lactulose oral liq 20 gm/30 mL UDC 30 GM PO (21:47)
[2023-08-06 22:20] VITALS: RESP 16
[2023-08-06] MEDS: oxyCODONE-APAP 5-325 mg Tablet 1 TAB PO (22:20)
[2023-08-06] MEDS: ondansetron 2 mg/ML SDV 2 mL 4 MG IVP (22:20)
[2023-08-06] MEDS: LORazepam 2 mg/mL INJ 10 mL MDV IVP (23:16)
[2023-08-07] VITALS: BP 115/72; PULSE 100; RESP 17; TEMP 36.9; O2SAT 91
[2023-08-07 04:00] VITALS: BP 113/73; PULSE 94; RESP 17; TEMP 36.6; O2SAT 95
[2023-08-07] MEDS: lactulose oral liq 20 gm/30 mL UDC 30 GM PO ×2 (04:12→10:34)
[2023-08-07 05:09] LABS: Eosinophils # 0.1 10^3/uL (0.0-0.8); Eosinophils % 2.1 %; Hematocrit 31.6 % (36-47); Lymphocytes # 0.7 10^3/uL (0.8-4.8); Mean Corpuscular Hemoglobin 28.9 pg (27-33); Mean Corpuscular Volume 90.3 fl (85-98); Mean Platelet Volume 10.1 fL (7.4-10.4); Monocytes # 0.5 10^3/uL (0.2-0.9); Monocytes % 17.8 %; Neutrophils # 1.58 10^3/uL (1.8-7.7); Neutrophils % 55.1 %; Nucleated Red Blood Cells % 0 %; Platelet Count 61 10^3/cmm (157-399); Red Cell Distribution Width 18.3 % (12.1-15.1); White Blood Count 2.87 10^3/uL (3.29-11.43)
[2023-08-07 05:34] LABS: Alanine Aminotransferase 55 U/L (0-33); Albumin Level 2.7 g/dL (3.5-5.2); Alkaline Phosphatase 211 U/L (35-105); Anion Gap 9.5 (5-19); Aspartate Amino Transferase 185 U/L (0-32); Blood Urea Nitrogen 8 mg/dL (6-20); Calcium 7.8 mg/dL (8.5-10.5); Carbon Dioxide 27 mmol/L (22-29); Chloride 106 mmol/L (98-107); Globulin 4.2 g/dL (1.3-4.6); Glomerular Filtration Rate 246.4 mL/min (90-130); Glucose 99 mg/dL (65-115); Osmolality Calculated 286 mOsm/kg (285-295); Potassium 3.5 mmol/L (3.5-5.1); Sodium 139 mmol/L (136-145); Total Bilirubin 3.4 mg/dL (0.15-1.2); Total Protein 6.9 g/dL (6.6-8.7)
[2023-08-07 06:39] VITALS: BMI 31.8
[2023-08-07] MEDS: enoxaparin 40 mg/0.4 mL Syringe SUBCUT (07:03)
[2023-08-07 08:00] VITALS: BP 128/78; PULSE 91; RESP 16; TEMP 36.4; O2SAT 96
[2023-08-07 08:33] VITALS: PULSE 96; RESP 16; O2SAT 94
[2023-08-07] MEDS: multivitamin therapeutic Tablet 1 TAB PO (08:33)
[2023-08-07] MEDS: thiamine 100 mg Tablet PO (08:33)
[2023-08-07] MEDS: spironolactone 25 mg Tablet 50 MG PO (08:33)
[2023-08-07] MEDS: FUROsemide 40 mg Tablet PO (08:33)
[2023-08-07] MEDS: doxycycline 100 mg Tablet PO (08:33)
[2023-08-07] MEDS: folic acid 1 mg Tablet PO (08:33)
[2023-08-07] MEDS: bacitracin ointment Pkt 1 EACH TOPICAL (08:34)
--- NOTE | 2023-08-07 08:50 | PC.CHAP ---
Pastoral Care Encounter/Spiritual Assessment Type of Contact [] Declined community board member visit [] Patient/Family/Request visit [] Outpatient visit [] Follow-up visit [] Physician referral [] Code/Alert [] Routine visit [] Staff referral [] Actively dying [x] Patient sleeping [] Family support [] [] Out of room [] Palliative care [] [] Receiving care in room [] Pre-surgical visit [] Trauma [] Long length of stay [] ICU visit [] Other: Relational/Emotional Strength [] Patient feels connected with others/family/visitors/staff [] Distress [] Loneliness/isolation [] Abandonment Spirituality of Patient [] Person of Melody [] Attends Jew of their Melody [] Believes in Prayer [] Reads Bible or Samaritan materials [] There are Spiritual issues to be addressed [employer] Crew Chief Interventions [x] Prayer [] Active listening [] Non-anxious presence [] Spiritual/emotional support [] Crisis/trauma care [] Spiritual counseling [] Bereavement support [] Provided bereavement packet [] Provided Bible/devotional materials [] Provided toy/stuffed animal, coloring book to patient or family member [] Provided Communion [] Anointing/[place] [] Salvation [] Completed spiritual assessment [] Other: Impact on Illness or Injury [] Angry [] Fearful [] Anxious [] Often cries [] Exhaustion [] Unable to work [] Unable to attend latter-day [] Unable to walk/stand [] Unable to read [] Unable to drive [] Unable to eat/drink [] Unable to sleep [] Unable to be with family [] Patient intubated [] Other: Summary Time spent with patient
--- NOTE | 2023-08-07 11:57 | P.DS_ITS ---
Discharge Providers Date of Admission: 08/06/23 21:08 Date of Discharge: August 07, 2023 Attending Provider at Admission: Amelie Sal MD Attending Provider at Discharge: Amelie Sal MD Primary Care Provider: Anders Cortez DO Diagnoses at Discharge Discharge Diagnosis (1) Bipolar 1 disorder: Status: Acute (2) Alcohol use disorder, severe, dependence: Status: Acute (3) Alcohol withdrawal: Status: Acute (4) Alcoholic cirrhosis: Status: Acute (5) Alcoholic cirrhosis of liver with ascites: Status: Acute (6) Chronic constipation: Status: Acute (7) Back pain with history of spinal surgery: Status: Acute Reason for Visit Reason for Visit: hallucinations Brief History: Teodora Stiles is a 42 year old female with history of alcohol abuse, she used to drink 4 to 5 pints of vodka on daily basis before she was admitted for her back surgery, patient stating that 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 Patient is stating that she has been experiencing hallucination, myoclonus related activity, confusion and poor attention span. She has not noticed any seizure related activity. No active chest pain shortness of breath or fever. Complaining of back pain at the time of evaluation, at the time of my evaluation she is awake and alert no active sig ns of encephalitis or meningitis she was asking for oxycodone for her back pain. She has a known history of alcohol-related liver cirrhosis, he has undergone esophageal variceal banding as well She has portal hypertension with liver cirrhosis on nadolol spironolactone and Lasix Hospital Course Hospital Course Patient was admitted for hallucinations and hepatic encephalopathy most likely related to alcohol abuse. Concern for Warnicke's encephalopathy secondary to alcohol use. She was endorsing visual hallucination cognitive impairment poor attention span. When seen by admitting physician she was doing okay and complaining of back pain requesting oxycodone. She was awake alert with no active signs of encephalitis or meningitis. When seen this morning she says that it is the first time in days she had good sleep. She is looking forward to going home. She says at times she does hallucinate however at this time she is doing okay. She is requesting a Medicaid cab as she needs a ride home. She says her aunt has been doing dressing changes. She is willing to follow-up with gastroenterology and wound care clinic at discharge. She says she uses [facility] [place] however she is okay with meds to beds for today. We will send her back on her existing home medications and add lactulose to her regimen. I would also put her on thiamine and add folic acid daily. She agrees to all of the above. She is to follow-up with her primary care doctor, wound care and gastroenterology as an outpatient. We will discharge her home in stable condition. Patient is alert oriented x 3. She has been counseled heavily on refraining from drinking alcohol. Talk with patient's aunt at discharge who is okay with the gastroenterology consult and verbalized understanding with patient's condition. I also discussed with her regarding patient's drinking and she agrees. Patient will follow-up with her primary care doctor Dr. Robledo as an outpatient. Will be discharged home in stable condition today. Physical Exam Narrative: Awake and alert No sign meningitis Nonfocal neuroexam GCS 15 Back nontender on palpation no active drainage from her wound Awake and alert GCS 15 S1, S2 Currently on room air Alert oriented x 3 Lungs clear to auscultation bilaterally Abdomen soft nontender Discharge Data Studies Completed and Pending Completed Studies During Hospitalization Category Date Time Status XR chest 1V portable [id number] Stat Exams 08/06/23 16:32 Completed Radiology Impressions Chest X-Ray 08/06/23 16:32 IMPRESSION: No acute findings. Laboratory Results WBC 2.87 10^3/uL (3.29-11.43) L 08/07/23 04:22 RBC 3.50 10^6/uL (3.85-5.65) L 08/07/23 04:22 Hgb 10.10 g/dL (11.27-16.99) L 08/07/23 04:22 Hct 31.6 % (36-47) L 08/07/23 04:22 MCV 90.3 fl (85-98) 08/07/23 04:22 MCH 28.9 pg (27-33) 08/07/23 04:22 MCHC 32.0 g/dL (30-55) 08/07/23 04:22 RDW 18.3 % (12.1-15.1) H 08/07/23 04:22 Plt Count 61 10^3/cmm (157-399) L 08/07/23 04:22 MPV 10.1 fL (7.4-10.4) 08/07/23 04:22 Neut % (Auto) 55.1 % 08/07/23 04:22 Lymph % (Auto) 24.0 % 08/07/23 04:22 [place] % (Auto) 17.8 % 08/07/23 04:22 Eos % (Auto) 2.1 % 08/07/23 04:22 Baso % (Auto) 1.0 % 08/07/23 04:22 Neut # (Auto) 1.58 10^3/uL (1.8-7.7) L 08/07/23 04:22 Lymph # (Auto) 0.7 10^3/uL (0.8-4.8) L 08/07/23 04:22 [place] # (Auto) 0.5 10^3/uL (0.2-0.9) 08/07/23 04:22 Eos # (Auto) 0.1 10^3/uL (0.0-0.8) 08/07/23 04:22 Baso # (Auto) 0.0 10^3/uL (0.0-0.1) 08/07/23 04:22 Nucleated RBC % (auto) 0 % 08/07/23 04:22 Nucleated RBCs # 0.0 /100WBC 08/07/23 04:22 PT 25.50 SECONDS (12.1-14.9) H 08/06/23 15:30 INR 2.23 (0.8-1.2) H 08/06/23 15:30 APTT 39.8 SECONDS (23.9-36.7) H 08/06/23 15:30 Sodium 139 mmol/L (136-145) 08/07/23 04:22 Potassium 3.5 mmol/L (3.5-5.1) 08/07/23 04:22 Chloride 106 mmol/L (98-107) 08/07/23 04:22 Carbon Dioxide 27 mmol/L (22-29) 08/07/23 04:22 Anion Gap 9.5 (5-19) 08/07/23 04:22 BUN 8 mg/dL (6-20) 08/07/23 04:22 Creatinine 0.3 mg/dL (0.5-0.9) L 08/07/23 04:22 GFR Calculation 246.4 mL/min (90-130) H 08/07/23 04:22 Glucose 99 mg/dL (65-115) 08/07/23 04:22 Calculated Osmolality 286 mOsm/kg (285-295) 08/07/23 04:22 Calcium 7.8 mg/dL (8.5-10.5) L 08/07/23 04:22 Magnesium 2.0 mg/dL (1.7-2.3) 08/07/23 04:22 Total Bilirubin 3.4 mg/dL (0.15-1.2) H 08/07/23 04:22 AST 185 U/L (0-32) H 08/07/23 04:22 ALT 55 U/L (0-33) H 08/07/23 04:22 Alkaline Phosphatase 211 U/L (35-105) H 08/07/23 04:22 Ammonia 55 umol/L (11-51) H 08/06/23 15:30 Total Protein 6.9 g/dL (6.6-8.7) 08/07/23 04:22 Albumin 2.7 g/dL (3.5-5.2) L 08/07/23 04:22 Globulin 4.2 g/dL (1.3-4.6) 08/07/23 04:22 Vitamin B12 > 2000 pg/mL (232-1245) H 08/06/23 15:30 TSH 1.11 uIU/mL (0.27-4.20) 08/06/23 15:30 Urine Color Yellow (Yellow) 08/06/23 15:49 Urine Appearance Clear (CLEAR) 08/06/23 15:49 Urine pH 7 (5-7) 08/06/23 15:49 Ur Specific [place] 1.010 (1.005-1.030) 08/06/23 15:49 Urine Protein Trace (Negative) 08/06/23 15:49 Urine Glucose (UA) Norm (Normal) 08/06/23 15:49 Urine Ketones 1+ (Negative) H 08/06/23 15:49 Urine Blood 2+ (Negative) H 08/06/23 15:49 Urine Nitrate Negative (Negative) 08/06/23 15:49 Urine Bilirubin 1+ (Negative) H 08/06/23 15:49 Urine Urobilinogen 4 mg/dL (Negative) H 08/06/23 15:49 Ur Leukocyte Esterase Trace (Negative) H 08/06/23 15:49 Urine RBC 0-4 /hpf (0-2) H 08/06/23 15:49 Urine WBC 0-4 /hpf (0-5) H 08/06/23 15:49 Ur Squamous Epith Cells 0-4 /hpf (0-5) H 08/06/23 15:49 Amorphous Sediment Not Reportable 08/06/23 15:49 Urine Bacteria Trace /hpf (NONE) 08/06/23 15:49 Urine Mucus Trace /hpf 08/06/23 15:49 Ethyl Alcohol < 10 mg/dL (0-10) 08/06/23 15:30 Vitals Last Vital Signs Temp 97.6 F 08/07/23 08:00 Pulse 96 08/07/23 08:33 Resp 16 08/07/23 08:33 BP 128/78 08/07/23 08:00 Pulse Ox 94 08/07/23 08:33 O2 Del Method Room Air 08/07/23 08:33 Discharge Plan Discharge Patient Disposition: Home Condition: Stable Prescriptions: New spironolactone 25 mg Tablet 50 mg PO DAILY Qty: 30 0RF thiamine mononitrate (vit B1) [Vitamin B-1 (mononitrate)] 100 mg Tablet 100 mg PO DAILY Qty: 30 0RF folic acid 1 mg Tablet 1 mg PO DAILY Qty: 30 0RF lactulose 20 gram/30 mL Solution 30 g PO BID Qty: 200 0RF multivitamin with folic acid [Thera] 400 mcg Tablet 1 tab PO DAILY Qty: 30 0RF Continued pyridoxine (vitamin B6) 100 mg tablet 100 mg PO DAILY Spiriva with HandiHaler 18 mcg capsule, w/inhalation device 1 cap inhalation DAILY Qty: 30 0RF Rx Instructions: puncture 1 cap using device; one dose = 2 inhalations ProAir HFA 90 mcg/actuation HFA aerosol inhaler 2 puff inhalation Q6H PRN (Reason: Shortness Of Breath Or Wheezing) Qty: 8.5 5RF epinephrine [EpiPen 2-Edmundo] 0.3 mg/0.3 mL auto-injector 0.3 mg IM Q4H PRN (Reason: anaphylaxis) Qty: 2 0RF cyclobenzaprine 10 mg tablet 10 mg PO TID PRN (Reason: Muscle Spasm) paroxetine HCl 20 mg tablet 20 mg PO QAM doxycycline hyclate 100 mg tablet 100 mg PO BID oxycodone 5 mg tablet 5 mg PO Q6H PRN (Reason: Pain) Changed furosemide 40 mg tablet 40 mg PO DAILY Qty: 30 0RF Held clonazepam 2 mg tablet 1 mg PO BID Hold Instructions: see pcp Discharge Orders: Discharge Order (Routine); Ordered 08/07/23 Ordered By: Amelie Sal Referrals: Emily Vega [Referring] - (Alcoholic liver cirrhosis) Anders Cortez DO [Primary Care Provider] - 1-3 days [facility], [Staff Physician] - 7-10 days Discharge Diet: As Directed Discharge Activity: Resume usual activity Patient Instructions: Cirrhosis of the Liver (GEN), Liver Disease Diet (GEN), Low-Sodium Diet (GEN), Encephalopathy (GEN), Opioid Safety Activity Restrictions/Additional Instructions: Please refrain from drinking alcohol again Limit processed foods, ingredients high in sodium and unhealthy fats. Try to stay under 2g sodium a day. Discharge Attestations Time Spent in Discharge Care*: greater than 30 min Quality Metrics Clinical Quality Measures [ No reported AMI, CVA or VTE this stay] Coding Level of Care Code 87710 Total time (in minutes) for Discharge: 35 Diagnoses Bipolar 1 disorder F31.9 Alcohol use disorder, severe, dependence F10.20 Alcohol withdrawal F10.239 Alcoholic cirrhosis K70.30 Alcoholic cirrhosis of liver with ascites K70.31 Chronic constipation K59.09 Back pain with history of spinal surgery M54.9; Z98.890
[2023-08-07 12:00] VITALS: BP 131/77; PULSE 96; RESP 16; TEMP 36.7; O2SAT 96
--- NOTE | 2023-08-07 15:16 | PC.SOCIAL ---
[employer] Ride: Trip arranged at this time. Trip ID: [id number]
[2023-08-07 16:00] VITALS: BP 131/77; PULSE 96; RESP 16; TEMP 36.7; O2SAT 96
== END 2023-08-07 16:00 | disposition home or self-care (01) ==
LOC: ER 17:16 → MEDSURG 08-07 06:22
PROVIDERS: Internal Medicine; Admitting Provider Internal Medicine; Emergency Provider Family Medicine; PCP Family Medicine; Visit Provider Internal Medicine
DX: F31.9 Bipolar disorder, unspecified (principal); F10.20 Alcohol dependence, uncomplicated; F10.239 Alcohol dependence with withdrawal, unspecified; K70.30 Alcoholic cirrhosis of liver without ascites; K70.31 Alcoholic cirrhosis of liver with ascites; K59.09 Other constipation; M54.9 Dorsalgia, unspecified; Z98.890 Other specified postprocedural states; J44.9 Chronic obstructive pulmonary disease, unspecified; F17.210 Nicotine dependence, cigarettes, uncomplicated
CPT/HCPCS: 36415; 71045; 80053; 80307; 81001; 82140; 82607; 83735; 84443; 85025; 85610; 85730; 93005; 96372; 99285; G0378; J1650; J2060; J2405; J3411

== ENCOUNTER → 2023-09-03 13:17 | Outpatient (BNVA) | payer MEDICAID, SELFPAY | PROVIDERS: PCP Family Medicine; Visit Provider Nurse Practitioner Family | DX: T14.8XXA Other injury of unspecified body region, initial encounter (principal); X58.XXXA Exposure to other specified factors, initial encounter | CPT/HCPCS: 87070; 87176; 87205 ==

== ENCOUNTER 2023-10-12 08:57 | Outpatient (CLI) | payer MEDICAID, SELFPAY ==
--- NOTE | 2023-10-12 08:45 | NM_ITS ---
WS: [id number] THREE-PHASE BONE SCAN HISTORY: Open Wound to spine possible infected hardware COMPARISON: Prior CT 11/03/2022. No hardware in the spine. There are no recent images of the spine wit h hardware placement or abscess at [facility]. Patient is is injected with 24.6 mCi Tc99m HDP intravenously. Immediate angiographic phase imaging is performed over the area of concern. Static blood pool imaging also performed. Two-hour whole-body sc intigrams performed in anterior and posterior projections. Additional large field of view imaging sub mitted as necessary. On the arterial and blood pool imaging there is a focal area of significant increased activity noted at the region of the aortic bifurcation and proximal LEFT common iliac artery. This is positive on tab th arterial and blood pool imaging and seen best on the anterior projection. No similar finding on th e 2-hour delayed imaging. There is very increased uptake in the RIGHT L5 facet and pedicle region. Normal ribs and SI joints. M ild degenerative changes at the ankles and knees. Mild SC joint arthritis. IMPRESSION: 1. Focal area of increased uptake seen only on the arterial and blood pool phase imaging of the thre e-phase bone scan centered at the aortic bifurcation and proximal LEFT common iliac artery. Visualize d on the more anterior imaging more than the posterior imaging. This could potentially be contaminati on from the radionuclide. Other possible etiologies to are inflammatory aortic aneurysm. This appears more anteriorly positioned in the subcu soft tissues related to the spine. 2. On the 2-hour delayed imaging there is just very minimal osteoarthritic changes at the RIGHT L5 p edicle. Otherwise degenerative changes at the joints. 3. Note: There were no recent imaging studies for comparison. No prior studies with spine hardware o r any complications of the hardware were available. Recommend additional follow-up imaging of the abd omen and pelvis to better identify the source of this positive uptake. Recommend follow-up CT abdomen and pelvis with IV contrast.
== END 2023-10-12 08:58 | disposition home or self-care (01) ==
PROVIDERS: PCP Family Medicine; Visit Provider Nurse Practitioner Family
DX: T14.8XXA Other injury of unspecified body region, initial encounter (principal); T81.31XS Disruption of external operation (surgical) wound, not elsewhere classified, sequela; Y83.8 Other surgical procedures as the cause of abnormal reaction of the patient, or of later complication, without mention of misadventure at the time of the procedure; M47.816 Spondylosis without myelopathy or radiculopathy, lumbar region; R93.5 Abnormal findings on diagnostic imaging of other abdominal regions, including retroperitoneum
CPT/HCPCS: 78315; A9561

== ENCOUNTER → 2023-10-15 11:30 | Outpatient (BNVA) | payer MEDICAID, SELFPAY | PROVIDERS: PCP Family Medicine; Visit Provider Nurse Practitioner Family | DX: F10.20 Alcohol dependence, uncomplicated (principal); K70.30 Alcoholic cirrhosis of liver without ascites | CPT/HCPCS: 80053; 85025 ==

== ENCOUNTER 2023-11-01 13:00 | Outpatient (CLI) | payer MEDICAID, SELFPAY ==
--- NOTE | 2023-11-01 13:30 | CT_ITS ---
WS: [id number] CT ABDOMEN AND PELVIS WITH CONTRAST HISTORY: Better identify source of positive uptake from 3ph bone scan TECHNIQUE: Imaging performed of the abdomen and pelvis with IV contrast. Single phase imaging of the abdomen. Coronal and sagittal reformats are submitted. All CT scans at [facility] use at [address] one of these dose optimization techniques: automated exposure control; mA and/or kV adjustment per patient size (includes targeted exams where dose is matched to clinical indication); or iterative re construction. IV CONTRAST: Omnipaque 350; 100 mL IV. Oral contrast: No DLP: 967.75 mGy.cm COMPARISON: Three-phase bone scan 10/12/2023. Prior CT 11/03/2022 Lower thorax: Lung bases are clear. Heart is normal size. No hiatal hernia. Liver/biliary system: Enlarged cirrhotic liver. Recanalization umbilical vein. No mass within the emely er. Gallbladder: Prior cholecystectomy. Pancreas: Normal size pancreas and pancreatic duct. No adjacent inflammation. Spleen: Enlarged, 14 cm in length. Adrenal glands: Normal. Right kidney: Normal. Left kidney: Normal. Aorta: Normal. There are numerous portosystemic collaterals in the upper abdomen. Dilated ovarian veins, LEFT greate r than RIGHT. There is no suspicious finding other than enlarged ovarian veins in the region of the a bnormality seen on the recent bone scan. There is no explanation by CT. There is also no inflammation . This may have been of artifact or contamination. Lymphadenopathy: Small shotty retroperitoneal lymph nodes. No new or enlarging lymph nodes are identi fied today. No significant adenopathy. Free fluid: Ascites described on the prior CT has resolved. GI tract: Nondistended stomach. No small bowel obstruction. No colon obstruction. Abdominal wall: Ventral abdominal wall hernia. Recanalized umbilical vein within the umbilicus. Pelvis: No free fluid or adenopathy within the pelvis. Bones: Posterior fusion from T12-L3. Fusion secondary to an H-shaped L1 compression fracture with ret ropulsion. IMPRESSION: 1. There are no corresponding findings on the CT at the aortic bifurcation to explain the findings o n the recent bone scan imaging. This could potentially been an area of radionuclide contamination. 2. Improved ascites and mesenteric edema since 11/03/2022. 3. Cirrhosis with portal venous hypertension and numerous varices. Recanalization of the umbilical v ein. 4. No adenopathy. 5. Prior posterior fusion from T12-L3 secondary to a biconcave L1 compression fracture.
[2023-11-01] MEDS: iohexol 350 mg/mL 500 mL Btl (per mL) IV (13:42)
== END 2023-11-01 13:01 | disposition home or self-care (01) ==
LOC: RAD 13:00
PROVIDERS: PCP Family Medicine; Visit Provider Nurse Practitioner Family
DX: T81.89XA Other complications of procedures, not elsewhere classified, initial encounter (principal); X58.XXXA Exposure to other specified factors, initial encounter
CPT/HCPCS: 74177; Q9967

== ENCOUNTER → 2023-11-19 15:20 | Outpatient (BNVA) | payer MEDICAID, SELFPAY | PROVIDERS: PCP Family Medicine; Visit Provider Dermatology | DX: L30.9 Dermatitis, unspecified (principal); L72.0 Epidermal cyst; L73.2 Hidradenitis suppurativa | CPT/HCPCS: 11104; 99204 ==

== ENCOUNTER → 2023-11-29 13:13 | Outpatient (BNVA) | payer MEDICAID, SELFPAY | PROVIDERS: PCP Nurse Practitioner Family; Visit Provider Dermatology | DX: L87.2 Elastosis perforans serpiginosa (principal); R60.0 Localized edema; Z48.02 Encounter for removal of sutures | CPT/HCPCS: 99214 ==

== ENCOUNTER 2024-01-01 13:26 | Emergency (ER) | payer MEDICAID, SELFPAY ==
[2024-01-01 13:32] VITALS: BP 155/110; PULSE 103; RESP 16; TEMP 36.8; O2SAT 99
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
[2024-01-01 14:39] VITALS: BP 129/81; PULSE 90; RESP 18; O2SAT 95
[2024-01-01] MEDS: ondansetron 2 mg/ML SDV 2 mL 4 MG IVP (14:40)
[2024-01-01] MEDS: HYDROmorphone 1 mg/mL INJ 1 mL 0.5 MG IVP (14:42)
[2024-01-01 14:43] LABS: Basophils % 0.6 %; Eosinophils % 0.9 %; Hematocrit 35.6 % (36-47); Lymphocytes # 0.9 10^3/uL (0.8-4.8); Mean Corpuscular Hemoglobin 34.9 pg (27-33); Mean Corpuscular Volume 102.6 fl (85-98); Mean Platelet Volume 9.1 fL (7.4-10.4); Monocytes # 0.4 10^3/uL (0.2-0.9); Neutrophils # 2.12 10^3/uL (1.8-7.7); Neutrophils % 61.2 %; Nucleated Red Blood Cells % 0 %; Platelet Count 60 10^3/cmm (157-399); Red Blood Count 3.47 10^6/uL (3.85-5.65); Red Cell Distribution Width 17.3 % (12.1-15.1); White Blood Count 3.46 10^3/uL (3.29-11.43)
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
[2024-01-01 15:11] LABS: Alanine Aminotransferase 29 U/L (0-33); Albumin Level 3.3 g/dL (3.5-5.2); Alkaline Phosphatase 119 U/L (35-105); Anion Gap 14.2 (5-19); Aspartate Amino Transferase 53 U/L (0-32); Blood Urea Nitrogen 9 mg/dL (6-20); Calcium 8.4 mg/dL (8.5-10.5); Carbon Dioxide 22 mmol/L (22-29); Chloride 105 mmol/L (98-107); Creatinine Clr Calc Pharmacy 267.2386; Globulin 3.9 g/dL (1.3-4.6); Glomerular Filtration Rate 245.2 mL/min (90-130); Glucose 82 mg/dL (65-115); Osmolality Calculated 282 mOsm/kg (285-295); Potassium 4.2 mmol/L (3.5-5.1); Sodium 137 mmol/L (136-145); Total Bilirubin 1.5 mg/dL (0.15-1.2); Total Protein 7.2 g/dL (6.6-8.7)
[2024-01-01 16:37] VITALS: RESP 18; O2SAT 96
[2024-01-01] MEDS: oxyCODONE-APAP 10-325 mg Tablet 1 TAB PO (16:37)
[2024-01-01 16:38] VITALS: BP 103/71; PULSE 72; RESP 18; O2SAT 97
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
--- NOTE | 2024-01-01 17:28 | PC.NURSE ---
Pt sent home with Oxycodone per Dr Villalta orders.
[2024-01-01 17:29] VITALS: BP 117/55; PULSE 101; RESP 18; O2SAT 96
== END 2024-01-01 18:33 | disposition home or self-care (01) ==
PROVIDERS: Emergency Provider Emergency Medicine; PCP Nurse Practitioner Family
DX: G44.89 Other headache syndrome (principal); M79.18 Myalgia, other site; F17.210 Nicotine dependence, cigarettes, uncomplicated; J44.9 Chronic obstructive pulmonary disease, unspecified
CPT/HCPCS: 36415; 70450; 73090; 80053; 85025; 96374; 96375; 99285; J1170; J2405

== ENCOUNTER → 2024-01-03 14:18 | Outpatient (BNVA) | payer MEDICAID, SELFPAY | PROVIDERS: PCP Nurse Practitioner Family; Visit Provider Orthopaedic Surgery | DX: M54.2 Cervicalgia (principal); M54.9 Dorsalgia, unspecified; M25.511 Pain in right shoulder | CPT/HCPCS: 72040; 72100; 73030; 99204 ==

== ENCOUNTER → 2024-01-08 14:01 | Outpatient (BNVA) | payer MEDICAID, SELFPAY | PROVIDERS: PCP Nurse Practitioner Family; Visit Provider Dermatology | DX: L87.2 Elastosis perforans serpiginosa (principal) | CPT/HCPCS: 99214 ==

== ENCOUNTER 2024-01-15 14:10 | Outpatient (CLI) | payer MEDICAID, SELFPAY ==
--- NOTE | 2024-01-15 14:30 | MR_ITS ---
WS: [id number] MRI CERVICAL SPINE NONCONTRAST HISTORY: Neck Pain COMPARISON: Cervical spine radiograph 01/03/2024 Technique: Multiplanar, multisequence noncontrast imaging of the cervical spine. Patient unable to po stcontrast imaging due to pain. Straightening of the normal cervical lordosis. No acute fractures are identified in the cervical spin e. There is a very slight anterior wedging of T2 and T4 but no marrow edema. T3 hemangioma. Signal within the cervical cord is normal. Visualized posterior fossa is unremarkable. Craniocervical junction, C1 and C2 relationship, odontoid process and soft tissues are normal. C2-C3: Normal. C3-C4: Slight disc bulging. No stenosis. C4-C5: Mild osteophytic ridging and annular disc bulging. Mild foraminal narrowing. C5-C6: Study significantly limited by motion artifact. There is mild annular disc bulging and osteoph ytosis. Suspect mild central and foraminal stenosis. C6-C7: No stenosis. C7-T1: Normal. Paraspinal soft tissue evaluation is significantly limited by motion artifact. MR/MR cervical spin wo con* [id number] IMPRESSION: 1. Study is compromised by motion artifact. 2. Mild central and foraminal stenosis at C5-6. 3. Mild foraminal narrowing at C4-5. 4. Significant straightening of the normal cervical lordosis may be due to spa sm.
== END 2024-01-15 14:11 | disposition home or self-care (01) ==
LOC: RAD 14:10
PROVIDERS: PCP Nurse Practitioner Family; Visit Provider Orthopaedic Surgery
DX: M48.02 Spinal stenosis, cervical region (principal); M50.322 Other cervical disc degeneration at C5-C6 level; M50.321 Other cervical disc degeneration at C4-C5 level; D18.09 Hemangioma of other sites; M25.78 Osteophyte, vertebrae
CPT/HCPCS: 72141

== ENCOUNTER 2024-01-16 14:07 | Outpatient (CLI) | payer MEDICAID, SELFPAY ==
--- NOTE | 2024-01-16 14:30 | MR_ITS ---
WS: [id number] MRI LUMBAR SPINE WITH AND WITHOUT CONTRAST HISTORY: Back pain COMPARISON: Lumbar spine radiograph 01/03/2024 TECHNIQUE: Sagittal and axial multisequence imaging is submitted. MultiHance 20 mL IV. L1 biconcave fracture. There is very slight bowing of the posterior L1 vertebral body. No residual ma rrow edema. There is an additional fracture involving the superior endplate of L5. No acute fracture or marrow edema. Posterior fusion hardware at T12-L3. No pedicle screws at the L1 level. Mild disc space narrowing and desiccation at L4-5 and L5-S1. Conus terminates normally at L1-2 disc level. L1-L2: Small central disc protrusion. Mild bilateral foraminal stenosis. L2-L3: No high-grade stenosis. Mild LEFT foraminal stenosis and facet arthritis. L3-L4: No stenosis. Mild facet arthropathy. L4-L5: Mild annular disc bulge with a tiny central disc protrusion. Mild ligamentum flavum hypertroph y and facet arthritis. L5-S1: Slight unroofing of the disc by anterolisthesis of L5. There is very slight disc encroachment upon the subarticular recesses. Moderate bilateral facet joint arthritis. Mild bilateral foraminal st enosis, slightly greater contact on the exiting RIGHT L5 nerve root. Postcontrast imaging is negative for discitis or osteomyelitis. Large portosystemic collateral is noted medial to the LEFT kidney. Cyst also seen on a prior study of 11/01/2023. MR/MR lumbar spine wo/w con [id number] IMPRESSION: 1. Prior posterior thoracolumbar fixation from T12-L3. Stable appearance of th e biconcave fracture at L1 with very slight posterior bowing. No retropulsion o f the vertebral body resulting in stenosis. 2. Mild bilateral foraminal narrowing at L1-2 and on the LEFT at L2-3. 3. Tiny central disc protrusion at L4-5. 4. Mild anterolisthesis of L5. Mild bilateral foraminal and subarticular reces s stenosis. Slightly greater encroachment upon the exiting RIGHT L5 nerve root. 5. No discitis or osteomyelitis.
[2024-01-16] MEDS: gadobenate dimeglumine 20 mL vial IV (15:14)
== END 2024-01-16 14:08 | disposition home or self-care (01) ==
PROVIDERS: PCP Nurse Practitioner Family; Visit Provider Orthopaedic Surgery
DX: S32.018A Other fracture of first lumbar vertebra, initial encounter for closed fracture (principal); S32.058A Other fracture of fifth lumbar vertebra, initial encounter for closed fracture; M48.061 Spinal stenosis, lumbar region without neurogenic claudication; M48.07 Spinal stenosis, lumbosacral region; M51.26 Other intervertebral disc displacement, lumbar region; M47.816 Spondylosis without myelopathy or radiculopathy, lumbar region; M51.37 Other intervertebral disc degeneration, lumbosacral region; M47.817 Spondylosis without myelopathy or radiculopathy, lumbosacral region; M43.17 Spondylolisthesis, lumbosacral region; X58.XXXA Exposure to other specified factors, initial encounter; M43.25 Fusion of spine, thoracolumbar region; M47.897 Other spondylosis, lumbosacral region
CPT/HCPCS: 72158; A9577

== ENCOUNTER → 2024-01-17 13:03 | Outpatient (BNVA) | payer MEDICAID, SELFPAY | PROVIDERS: PCP Nurse Practitioner Family; Visit Provider Orthopaedic Surgery | DX: Z98.890 Other specified postprocedural states (principal); M54.9 Dorsalgia, unspecified; M25.511 Pain in right shoulder | CPT/HCPCS: 73030; 99214 ==

== ENCOUNTER → 2024-01-29 13:09 | Outpatient (BNVA) | payer MEDICAID, SELFPAY | PROVIDERS: PCP Nurse Practitioner Family; Visit Provider Orthopaedic Surgery | DX: M54.50 Low back pain, unspecified (principal); G89.29 Other chronic pain; M25.511 Pain in right shoulder | CPT/HCPCS: 73060; 99213 ==

== ENCOUNTER → 2024-02-19 15:15 | Outpatient (BNVA) | payer MEDICAID, SELFPAY | PROVIDERS: PCP Nurse Practitioner Family; Visit Provider Dermatology | DX: L87.2 Elastosis perforans serpiginosa (principal) | CPT/HCPCS: 99214 ==

== ENCOUNTER → 2024-02-21 14:53 | Outpatient (BNVA) | payer MEDICAID, SELFPAY | PROVIDERS: PCP Nurse Practitioner Family; Visit Provider Orthopaedic Surgery | DX: S42.294A Other nondisplaced fracture of upper end of right humerus, initial encounter for closed fracture (principal); S42.91XA Fracture of right shoulder girdle, part unspecified, initial encounter for closed fracture; V89.2XXD Person injured in unspecified motor-vehicle accident, traffic, subsequent encounter; M54.50 Low back pain, unspecified; G89.29 Other chronic pain | CPT/HCPCS: 72110; 73030; 99213 ==

== ENCOUNTER → 2024-03-25 13:54 | Outpatient (BNVA) | payer MEDICAID, SELFPAY | PROVIDERS: PCP Nurse Practitioner Family; Visit Provider Orthopaedic Surgery | DX: S42.294A Other nondisplaced fracture of upper end of right humerus, initial encounter for closed fracture (principal); X58.XXXA Exposure to other specified factors, initial encounter | CPT/HCPCS: 73030; 99213 ==

== ENCOUNTER → 2024-04-15 12:53 | Outpatient (BNVA) | payer MEDICAID, SELFPAY | PROVIDERS: PCP Nurse Practitioner; Visit Provider Orthopaedic Surgery | DX: S42.294A Other nondisplaced fracture of upper end of right humerus, initial encounter for closed fracture (principal); M54.50 Low back pain, unspecified; G89.29 Other chronic pain; X58.XXXA Exposure to other specified factors, initial encounter | CPT/HCPCS: 72110; 73030; 99214 ==

== ENCOUNTER → 2024-05-12 14:14 | Outpatient (BNVA) | payer MEDICAID, SELFPAY | PROVIDERS: PCP Nurse Practitioner; Referring Provider Nurse Practitioner; Visit Provider Obstetrics & Gynecology | DX: Z34.90 Encounter for supervision of normal pregnancy, unspecified, unspecified trimester (principal) | CPT/HCPCS: 80053; 83001; 84146; 84443; 85025; 87624 ==

== ENCOUNTER → 2024-06-17 11:10 | Outpatient (BNVA) | payer OTHER, SELFPAY | PROVIDERS: Visit Provider Orthopaedic Surgery | DX: M25.511 Pain in right shoulder (principal) | CPT/HCPCS: 73030 ==

== ENCOUNTER → 2024-07-07 10:10 | Outpatient (BNVA) | payer MEDICAID, SELFPAY | PROVIDERS: Visit Provider Obstetrics & Gynecology | DX: N92.5 Other specified irregular menstruation (principal) | CPT/HCPCS: 76830 ==

== ENCOUNTER → 2024-07-17 14:15 | Outpatient (BNVA) | payer MEDICAID, SELFPAY | PROVIDERS: Visit Provider Nurse Practitioner Family | DX: L23.9 Allergic contact dermatitis, unspecified cause (principal) | CPT/HCPCS: 99213 ==

== ENCOUNTER → 2024-12-25 12:56 | Outpatient (BNVA) | payer MEDICAID, SELFPAY | PROVIDERS: Visit Provider Dermatology | DX: L87.2 Elastosis perforans serpiginosa (principal); L70.8 Other acne; I78.8 Other diseases of capillaries; L73.2 Hidradenitis suppurativa | CPT/HCPCS: 10061; 99214 ==

== ENCOUNTER → 2025-06-16 15:22 | Outpatient (BNVA) | payer MEDICAID, SELFPAY | PROVIDERS: Visit Provider Orthopaedic Surgery | DX: Z47.89 Encounter for other orthopedic aftercare (principal); M25.511 Pain in right shoulder | CPT/HCPCS: 73030; 99213 ==

== ENCOUNTER 2025-07-03 09:29 | Outpatient (CLI) | payer MEDICAID, SELFPAY ==
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
== END 2025-07-03 09:30 | disposition home or self-care (01) ==
LOC: RAD 09:30
PROVIDERS: PCP Nurse Practitioner; Visit Provider Orthopaedic Surgery
DX: M87.811 Other osteonecrosis, right shoulder (principal); M75.31 Calcific tendinitis of right shoulder; M75.111 Incomplete rotator cuff tear or rupture of right shoulder, not specified as traumatic
CPT/HCPCS: 73221

== ENCOUNTER → 2025-07-20 14:08 | Outpatient (BNVA) | payer MEDICAID, SELFPAY | PROVIDERS: PCP Nurse Practitioner; Visit Provider Nurse Practitioner | DX: S42.294S Other nondisplaced fracture of upper end of right humerus, sequela (principal); M87.9 Osteonecrosis, unspecified; S46.011A Strain of muscle(s) and tendon(s) of the rotator cuff of right shoulder, initial encounter; X58.XXXA Exposure to other specified factors, initial encounter; X58.XXXS Exposure to other specified factors, sequela | CPT/HCPCS: 73030; 99204 ==